=== PATIENT | female | born 1945 ===

== ENCOUNTER 2016-06-29 16:03 | Observation (INO) | payer MEDICARE, MEDICAID ==
[2016-06-29 16:04] VITALS: BMI 25.0
--- NOTE | 2016-06-29 16:17 | ED PDOC ---
HPI:STROKE - Time Time: 16:15 - Historian Historian: Patient, Family, EMS (wEAKNESS LEFT UPPER AND LEFT LOWER EXT X 1 WEEK. Denies headache or dizziness) - Chief Complaint Chief Complaint: Weakness - Onset Date: 06/22/16 Time: 12:00 Onset: Weeks (1) - Timing Timing: Currently Symptomatic - Location Locate left: Upper extremity - Radiation Radiation: None - Severity of pain Maximum severity:: Mild Pain Scale:: 0 Severity Current: Mild Pain Scale:: 0 - TPA Positive for Contraindication: Yes Reason tPA is not being Administered: Sx x 1 week NIHSS Stroke Scale - How Severe is the Stroke Level of Consciousness: 0=Alert LOC to Questions: 0=Both comments correct LOC to commands: 0=Obeys both correctly Best Gaze: 0=Normal Visual: 0=No visual loss Facial: 1=Minor asymmetry Motor Arm - Left: 1=Drift noted before 10 sec Motor Arm - Right: 0=No drift Motor Leg - Left: 1=Drift before 5 sec Motor Leg - Right: 0=No drift Limb Ataxia: 0=Absent Sensory: 0=Normal Best Language: 0=No aphasia Dysarthia: 0=Normal articulation Extinction & Inattention (Neglect): 0=Normal, no object Score: 3 rTPA Inclusion/Exclusion - Refusal of Treatment Patient Refused Treatment: No - Inclusion Criteria for Altepase Patient is 18 years or Older: Yes The Clinical Diagnosis of Ischemic Stroke That is Causing a Potentially Disabling Neurological Deficit: Yes Time of Onset is Well Established to be Less Than 270 Minute Before Treatment Would Begin: No Risk/Benefit Discussed With Patient/Family Member Present: No Past Medical History Vital Signs: Last Vital Signs Temp 98.4 F 06/29/16 16:08 Pulse 90 06/29/16 16:08 Resp 16 06/29/16 16:08 BP 189/109 H 06/29/16 16:08 Pulse Ox 100 06/29/16 16:08 - Medical History PMH: Anxiety, Arthritis, Diverticulitis, Hypercholesterolemia, Osteoporosis, Parkinson's Disease Denies: CAD, Diabetes, Gastritis, Gall Bladder Disease, GERD, HIV, Pancreatitis, Chronic Kidney Disease - Surgical History Surgical History: Appendectomy - Family History Family History: States: Unknown Family Hx - Immunization History Hx Tetanus Toxoid Vaccination: No Hx Influenza Vaccination: Yes Hx Pneumococcal Vaccination: Yes - Home Medications Home Medications: Ambulatory Orders Medication Instructions Recorded Alendronate Sodium [Fosamax] 70 mg PO SAT 06/04/15 Simvastatin 20 mg PO HS 06/04/15 Carbidopa/Levodopa [Sinemet 1 tab PO BID 06/29/16] Gabapentin [Neurontin] 300 mg PO DAILY 06/29/16 Pantoprazole Sodium [Protonix] 40 mg PO DAILY 06/29/16 clonazePAM [Klonopin] 0.5 mg PO HS 06/29/16 rOPINIRole [Requip] 2 mg PO TID 06/29/16 - Allergies Allergies/Adverse Reactions: Allergies Allergy/AdvReac Type Severity Reaction Status Date / Time clarithromycin Allergy NAUSEA Verified 06/29/16 16:08 iodine Allergy SWELLING Verified 06/29/16 16:08 Review of Systems ROS Statement: Except As Marked, All Systems Reviewed And Found Negative Neurological: Positive for: Weakness Physical Exam - Reviewed Nursing Documentation Reviewed: Yes Vital Signs Reviewed: Yes - Physical Exam Appears: Positive for: Non-toxic, No Acute Distress Head Exam: Positive for: ATRAUMATIC, NORMAL INSPECTION, NORMOCEPHALIC Skin: Positive for: Normal Color, Warm, DRY Eye Exam: Positive for: EOMI, Normal appearance, PERRL ENT: Positive for: Normal ENT Inspection Neck: Positive for: Normal, Painless ROM Cardiovascular/Chest: Positive for: Regular Rate, Rhythm Respiratory: Positive for: CNT, Normal Breath Sounds Gastrointestinal/Abdominal: Positive for: Normal Exam, Bowel Sounds, Soft Back: Positive for: Normal Inspection Extremity: Positive for: Normal ROM Neurologic/Psych: Positive for: Alert, Oriented, Motor/Sensory Deficits (left upper and lower ext motor 1/4), Facial Droop (Mild asymmetry left side) - Laboratory Results Result Diagrams: 06/29/16 17:12 06/29/16 17:12 - ECG O2 Sat by Pulse Oximetry: 100 Disposition - Clinical Impression Clinical Impression: CVA (cerebral vascular accident) - Patient ED Disposition Is Patient to be Admitted: Yes - Disposition Disposition Time: 18:46 Condition: FAIR - Pt Status Changed To: Hospital Disposition Of: Observation - POA Present On Arrival: None
--- NOTE | 2016-06-29 16:45 | CT ---
PROCEDURE: CT HEAD WITHOUT CONTRAST. HISTORY: code stroke COMPARISON: No prior study available for comparison. TECHNIQUE: Axial computed tomography images were obtained through the head/brain without intravenous contrast. Radiation dose: Total exam DLP = 852.67 mGy-cm. This CT exam was performed using one or more of the following dose reduction techniques: Automated exposure control, adjustment of the mA and/or kV according to patient size, and/or use of iterative reconstruction technique. FINDINGS: HEMORRHAGE: No acute parenchymal, subarachnoid or extra-axial hemorrhage. BRAIN: Mild-moderate chronic periventricular white matter ischemic changes seen extending peripherally into the deep and subcortical white matter both cerebral hemispheres. Moderate central volume loss evidenced by mild disproportionate enlargement of the ventricles as compared sulci. Vascular calcifications of both carotid siphons. VENTRICLES: No evidence of obstructive hydrocephalus. CALVARIUM: There are no acute calvarial fractures. Small rounded lucency within the left anterior superior parietal calvarium likely represents a venous Alexander PARANASAL SINUSES: Visualized paranasal sinuses are well-developed entirely well-aerated. No fluid levels seen to suggest acute sinusitis. MASTOID AIR CELLS: Left mastoid air complexes are underpneumatized/mildly sclerotic compared to the right-side. OTHER FINDINGS: Changes of bilateral cataract surgery are present. IMPRESSION: Mild to moderate chronic white matter ischemic changes. Moderate central volume loss. Case discussed with Dr. Anderson at approximately 4:35 p.m. with written down and read back verification.
[2016-06-29 17:17] LABS: BASO % 0.4 % (0.0-2.0); EOS % 0.4 % (0.0-4.0); HEMATOCRIT 38.5 % (34.0-47.0); LYMPH # 2.7 K/uL (1.0-4.3); LYMPH % 32.9 % (20.0-40.0); MEAN CELL VOLUME 97.4 fl (81.0-99.0); MEAN CORPUSCULAR HEMOGLOBIN 31.7 pg (27.0-31.0); MEAN CORPUSCULAR HGB CONC 32.5 g/dL (33.0-37.0); MEAN PLATELET VOLUME 8.9 fl (7.2-11.7); MONO # 0.6 K/uL (0.0-0.8); MONO % 6.7 % (0.0-10.0); NEUT # 4.9 K/uL (1.8-7.0); NEUT % 59.6 % (50.0-75.0); NRBC % 0.1 % (0.0-0.0); RED CELL DISTRIBUTION WIDTH 13.1 % (11.5-14.5); WHITE BLOOD COUNT 8.3 K/uL (4.8-10.8)
[2016-06-29 17:32] LABS: ALB/GLOB RATIO 1.5 (1.0-2.1); ALKALINE PHOSPHATASE 56 U/L (38-126); ALT/SGPT 23 U/L (9-52); AST/SGOT 30 U/L (14-36); BILIRUBIN,TOTAL 0.5 mg/dl (0.2-1.3); BLOOD UREA NITROGEN 19 mg/dl (7-17); CALCIUM 9.8 mg/dL (8.4-10.2); CARBON DIOXIDE 26 mmol/L (22-30); CHLORIDE 103 mmol/L (98-107); CHOLESTEROL 166 mg/dL (0-199); GFR AFRICAN-AMERICAN > 60; GLUCOSE,RANDOM 91 mg/dL (65-105); POTASSIUM 4.5 MMOL/L (3.6-5.0); SODIUM 143 mmol/l (132-148); TOTAL PROTEIN 7.7 G/DL (6.3-8.2)
[2016-06-29 18:45] LABS: PARTIAL THROMBOPLASTIN TIME 24.9 SECONDS (23.3-32.5)
--- NOTE | 2016-06-29 21:22 | MRI ---
EXAM: MR Head Without Intravenous Contrast CLINICAL HISTORY: 71 years old, female; Signs and symptoms; Other: CVA TECHNIQUE: Magnetic resonance images of the head/brain without intravenous contrast in multiple planes. COMPARISON: CT - HEAD W/O (CODE STROKE) 06/29/2016 4:16:32 PM FINDINGS: There is prominence of the ventricles and the cortical sulci bilaterally consistent with cerebral atrophy. There are numerous foci of increased T2 signal in the deep white matter and periventricular zones consistent with chronic small vessel ischemic changes. Question old left cerebellar infarct. There is no evidence for acute hemorrhage, infarct or extra-axial fluid collections. There are no masses or mass effect. Midline structures are symmetric. The large major cerebral vessels demonstrate normal flow voids indicating patency. Limited evaluation of the orbits. Mild paranasal sinus disease. IMPRESSION: No acute intracranial abnormality. Chronic atrophic and ischemic changes. Correlate with report for CT head.
--- NOTE | 2016-06-29 21:23 | MRI ---
EXAM: MR Angiography Head Without Intravenous Contrast CLINICAL HISTORY: 71 years old, female; Signs and symptoms; Other: CVA TECHNIQUE: Magnetic resonance angiography images of the head without intravenous contrast. COMPARISON: CT - HEAD W/O (CODE STROKE) 06/29/2016 4:16:32 PM FINDINGS: Evaluation of the intracranial portions of the bilateral internal carotid and vertebral arteries, the basilar artery, the [place], and its main branches reveals no significant stenosis or occlusion. No aneurysm is identified. IMPRESSION: Negative study.
--- NOTE | 2016-06-29 21:23 | MRI ---
EXAM: MR Angiography Neck Without Intravenous Contrast CLINICAL HISTORY: 71 years old, female; Signs and symptoms; Other: CVA TECHNIQUE: Magnetic resonance angiography images of the neck without intravenous contrast. COMPARISON: No relevant prior studies available. FINDINGS: Evaluation of the extracranial portions of the of bilateral common carotid, internal carotid, external carotid, and vertebral arteries reveals no significant stenosis or occlusion. IMPRESSION: No significant stenosis. Further followup evaluation should be performed with dedicated carotid ultrasound.
[2016-06-30 00:11] VITALS: RESP 18
[2016-06-30 00:12] LABS: THYROID STIMULATING HORMONE 2.65 mIU/ML (0.46-4.68)
[2016-06-30] MEDS ORDERED: ROPINIROLE 2 MG PO SCH (09:00)
[2016-06-30] MEDS ORDERED: Pantoprazole 40 mg EC Tab PO SCH (09:00)
[2016-06-30] MEDS ORDERED: Enoxaparin 40 mg Syringe SC SCH (09:00)
--- NOTE | 2016-06-30 11:53 | RAD ---
HISTORY: CVA COMPARISON: Comparison is made to the previous CT dated 05/12/2013 FINDINGS: LUNGS: No active pulmonary disease. PLEURA: No significant pleural effusion identified, no pneumothorax apparent. CARDIOVASCULAR: Normal. OSSEOUS STRUCTURES: No evidence of acute pathology. Soft tissue calcification seen adjacent to the right humerus head likely represent calcified tendinitis. VISUALIZED UPPER ABDOMEN: Normal. OTHER FINDINGS: None. IMPRESSION: No active disease.
--- NOTE | 2016-06-30 12:30 | CP.PCM.HP ---
History of Present Illness - History of Present Illness History of Present Illness: Patient [id number] di the PMD office with minimal weakness in the lt side of the body. At present time the deficit resolved. Not focal deficit. W/U no acute CVA. Will dc patient home Dx. TIA Present on Admission - Present on Admission Any Indicators Present on Admission: No Review of Systems - Constitutional Constitutional: As Per HPI - EENT Eyes: As Per HPI Nose/Mouth/Throat: As Per HPI - Cardiovascular Cardiovascular: As Per HPI - Respiratory Respiratory: As Per HPI - Gastrointestinal Gastrointestinal: As Per HPI - Musculoskeletal Musculoskeletal: As Per HPI - Neurological Neurological: As Per HPI - Psychiatric Psychiatric: As Per HPI Past Patient History - Infectious Disease Hx of Infectious Diseases: None - Past Medical History & Family History Past Medical History?: Yes - Past Social History Smoking Status: Never Smoked - CARDIAC Hx Hypercholesterolemia: Yes - PULMONARY Hx Respiratory Disorders: No - NEUROLOGICAL Hx Neurological Disorder: Yes Hx Parkinson's Disease: Yes - HEENT Hx HEENT Problems: Yes Hx Cataracts: Yes (HX OF AILEEN. SURGERY) - RENAL Hx Chronic Kidney Disease: No - ENDOCRINE/METABOLIC Hx Endocrine Disorders: No - HEMATOLOGICAL/ONCOLOGICAL Hx Blood Disorders: No Hx Human Immunodeficiency Virus (HIV): No - INTEGUMENTARY Hx Dermatological Problems: No - MUSCULOSKELETAL/RHEUMATOLOGICAL Hx Arthritis: Yes - GASTROINTESTINAL Hx Gastrointestinal Disorders: Yes Hx Diverticulitis: Yes Hx Gall Bladder Disease: No Hx Gastritis: No Hx Pancreatitis: No - GENITOURINARY/GYNECOLOGICAL Hx Genitourinary Disorders: No - PSYCHIATRIC Hx Psychophysiologic Disorder: No Hx Substance Use: No - SURGICAL HISTORY Hx Surgeries: Yes Hx Appendectomy: Yes Hx Hysterectomy: Yes Hx Tubal Ligation: Yes Other/Comment: bladder surgery, - ANESTHESIA Hx Anesthesia: Yes Hx Anesthesia Reactions: Yes (delayed awakening) Hx Malignant Hyperthermia: No Has any member of the family had a problem w/ anesthesia?: No Meds Allergies/Adverse Reactions: Allergies Allergy/AdvReac Type Severity Reaction Status Date / Time clarithromycin Allergy NAUSEA Verified 06/29/16 16:08 iodine Allergy SWELLING Verified 06/29/16 16:08 Physical Exam - Constitutional Appears: Non-toxic - Head Exam Head Exam: ATRAUMATIC, NORMAL INSPECTION, NORMOCEPHALIC - Eye Exam Eye Exam: Normal appearance Pupil Exam: NORMAL ACCOMODATION, PERRL - ENT Exam ENT Exam: Mucous Membranes Moist - Neck Exam Neck exam: Positive for: Normal Inspection - Respiratory Exam Respiratory Exam: Clear to Auscultation Bilateral - Cardiovascular Exam Cardiovascular Exam: REGULAR RHYTHM, +S1, +S2 - GI/Abdominal Exam GI & Abdominal Exam: Normal Bowel Sounds - Neurological Exam Neurological exam: Alert, CN II-XII Intact, Oriented x3, Reflexes Normal - Psychiatric Exam Psychiatric exam: Normal Affect Results - Vital Signs Recent Vital Signs: Last Vital Signs Temp 98.2 F 06/30/16 08:17 Pulse 94 H 06/30/16 11:11 Resp 18 06/30/16 08:17 BP 130/78 06/30/16 08:17 Pulse Ox 99 06/30/16 11:11 - Labs Result Diagrams: 06/29/16 17:12 06/29/16 17:12 Labs: Laboratory Results - last 24 hr 06/29/16 06/29/16 06/29/16 20:34 21:00 23:19 Hemoglobin A1c 5.5 Vitamin B12 986 H TSH 3rd Generation 2.65 Blood Type Confirm O POSITIVE Assessment & Plan (1) TIA (transient ischemic attack) Status: Acute (2) Gait disturbance Status: Acute - Assessment and Plan (Free Text) Plan: DC home on home PT
--- NOTE | 2016-06-30 14:27 | US ---
COMPARISON: Study was read in conjunction with MRA neck performed 06/29/2016. FINDINGS: Minimal intimal thickening seen within the right and left common carotid arteries. No significant atherosclerotic plaque changes however identified within the carotid bifurcations or proximal internal carotid arteries. Maximal right ICA velocity = 102.3 cm/S Maximal right CCA velocity = 95.6 cm/S ICA/CCA ratio = 1.2 Maximal left ICA velocity = 93.4 cm/S Maximal left CCA velocity = 96.5 cm/S ICA/CCA ratio = 1.2. Antegrade flow noted both vertebral arteries Impression: No evidence of hemodynamically significant stenosis.
[2016-06-30 16:15] VITALS: BP 129/77; PULSE 90; TEMP 98.7; O2SAT 99
[2016-06-30 17:23] LABS: FOLATE 19.4 ng/mL
--- NOTE | 2016-06-30 17:43 | CARD ---
APPROVED REPORT EXAM: Two-dimensional and M-mode echocardiogram with Doppler and color Doppler. Other Information Quality : GoodRhythm : NSR INDICATION Palpitations 2D DIMENSIONS IVSd0.97 (0.7-1.1cm)LVDd4.02 (3.9-5.9cm) LVOT Diameter1.75 (1.8-2.4cm)PWd0.93 (0.7-1.1cm) IVSs1.15 (0.8-1.2cm)LVDs2.54 (2.5-4.0cm) FS (%) 36.8 %PWs1.11 (0.8-1.2cm) M-Mode DIMENSIONS Left Atrium (MM)4.21 (2.5-4.0cm)IVSd1.00 (0.7-1.1cm) Aortic Root2.88 (2.2-3.7cm)LVDd5.29 (4.0-5.6cm) Aortic Cusp Exc.2.00 (1.5-2.0cm)PWd1.03 (0.7-1.1cm) IVSs1.47 cmFS (%) 55 % LVDs2.38 (2.0-3.8cm)PWs1.24 cm Mitral Valve MV E Vrdlurki04.8cm/sMV DECEL [id number] A Sfdzhihp78.7cm/s MV ZYK78mcC/A ratio0.7MVA (PHT)3.70cm2 TDI Lateral E' Peak V8.88cm/sMedial E' Peak V6.44cm/sE/Lateral E'6.2 E/Medial E'8.5 Pulmonary Valve PV Peak Epwkpwha920.5cm/s LEFT VENTRICLE The left ventricle is normal size. There is normal left ventricular wall thickness. The left ventricular function is normal. The left ventricular ejection fraction is 60-65% There is normal LV segmental wall motion. Transmitral Doppler flow pattern is Grade I-abnormal relaxation pattern. No left ventricle thrombus noted on this study. There is no ventricular septal defect visualized. There is no left ventricular aneurysm. There is no mass noted in the left ventricle. RIGHT VENTRICLE The right ventricle is normal size. There is normal right ventricular wall thickness. The right ventricular systolic function is normal. ATRIA The left atrium size is normal. The right atrium size is normal. The interatrial septum is intact with no evidence for an atrial septal defect. AORTIC VALVE The aortic valve is mildly sclerotic. There is trace aortic regurgitation. There is no aortic valvular stenosis. There is no aortic valvular vegetation. MITRAL VALVE The mitral valve is normal in structure and function. There is no evidence of mitral valve prolapse. There is no mitral valve stenosis. There is no mitral valve regurgitation noted. TRICUSPID VALVE The tricuspid valve is normal in structure and function. There is no tricuspid valve regurgitation noted. There is no tricuspid valve prolapse or vegetation. There is no tricuspid valve stenosis. PULMONIC VALVE The pulmonary valve is normal in structure and function. There is no pulmonic valvular regurgitation. There is no pulmonic valvular stenosis. GREAT VESSELS The aortic root is normal in size. The ascending aorta is normal in size. The IVC is normal in size and collapses >50% with inspiration. PERICARDIAL EFFUSION The pericardium appears normal. There is no pleural effusion. <Conclusion> Normal LV systolic function Trace Aortic Insufficiency
--- NOTE | 2016-06-30 17:48 | CP.PCM.CON ---
History of Present Illness - History of Present Illness History of Present Illness: Mrs. Alvarenga is a 71-year-old woman with a past medical history of anxiety and neuropathic pain, who was noted to have left side weakness in her PMD's office. This weakness seems to come and go, but is now resolved. She was admitted for TIA work up. Currently, she has no complaints and is asking to go home. Review of Systems - Review of Systems All systems: reviewed and no additional remarkable complaints except Past Patient History - Infectious Disease Hx of Infectious Diseases: None - Past Medical History & Family History Past Medical History?: Yes - Past Social History Smoking Status: Never Smoked - CARDIAC Hx Hypercholesterolemia: Yes - PULMONARY Hx Respiratory Disorders: No - NEUROLOGICAL Hx Neurological Disorder: Yes Hx Parkinson's Disease: Yes - HEENT Hx HEENT Problems: Yes Hx Cataracts: Yes (HX OF AILEEN. SURGERY) - RENAL Hx Chronic Kidney Disease: No - ENDOCRINE/METABOLIC Hx Endocrine Disorders: No - HEMATOLOGICAL/ONCOLOGICAL Hx Blood Disorders: No Hx Human Immunodeficiency Virus (HIV): No - INTEGUMENTARY Hx Dermatological Problems: No - MUSCULOSKELETAL/RHEUMATOLOGICAL Hx Arthritis: Yes - GASTROINTESTINAL Hx Gastrointestinal Disorders: Yes Hx Diverticulitis: Yes Hx Gall Bladder Disease: No Hx Gastritis: No Hx Pancreatitis: No - GENITOURINARY/GYNECOLOGICAL Hx Genitourinary Disorders: No - PSYCHIATRIC Hx Psychophysiologic Disorder: No Hx Substance Use: No - SURGICAL HISTORY Hx Surgeries: Yes Hx Appendectomy: Yes Hx Hysterectomy: Yes Hx Tubal Ligation: Yes Other/Comment: bladder surgery, - ANESTHESIA Hx Anesthesia: Yes Hx Anesthesia Reactions: Yes (delayed awakening) Hx Malignant Hyperthermia: No Has any member of the family had a problem w/ anesthesia?: No Meds Home Medications: Home Medication List Medication Instructions Recorded Confirmed Type Aspirin [Adult Low Dose Aspirin EC] 81 mg PO DAILY #30 tablet. 06/30/16 Rx Allergies/Adverse Reactions: Allergies Allergy/AdvReac Type Severity Reaction Status Date / Time clarithromycin Allergy NAUSEA Verified 06/29/16 16:08 iodine Allergy SWELLING Verified 06/29/16 16:08 Physical Exam - Constitutional Appears: Well - Head Exam Head Exam: ATRAUMATIC, NORMAL INSPECTION, NORMOCEPHALIC - Eye Exam Eye Exam: EOMI, Normal appearance, PERRL - ENT Exam ENT Exam: Mucous Membranes Moist, Normal Exam - Neck Exam Neck exam: Positive for: Normal Inspection - Respiratory Exam Respiratory Exam: Clear to Auscultation Bilateral, NORMAL BREATHING PATTERN - Cardiovascular Exam Cardiovascular Exam: REGULAR RHYTHM, +S1, +S2 - GI/Abdominal Exam GI & Abdominal Exam: Normal Bowel Sounds, Soft. absent: Tenderness - Rectal Exam Rectal Exam: Deferred - Extremities Exam Extremities exam: Positive for: normal inspection - Neurological Exam Neurological exam: Abnormal Gait, Alert, CN II-XII Intact, Oriented x3, Reflexes Normal - Expanded Neurological Exam Expanded Patient oriented to: person, place, time Cranial nerves: EOM's Intact: Normal Cerebellar Function: Finger to Nose: Normal Upper motor neuron: Babinski Sign: Normal Sensory exam: Lower Extremity Light Touch: Normal, Lower Extremity Pin Prick: Normal, Upper Extremity Light Touch: Normal, Upper Extremity Pin Prick: Normal Neuro motor strength exam: Left Upper Extremity: 4, Right Upper Extremity: 4, Left Lower Extremity: 4, Right Lower Extremity: 4 DTR: Achilles Tendon Left: 2+, Achilles Tendon Right: 2+, Bicep Left: 2+, Bicep Right: 2+, Brachioradialis Left: 2+, Brachioradialis Right: 2+, Patellar Left: 2 +, Patellar Right: 2+, Tricep Left: 2+, Tricep Right: 2+ - Psychiatric Exam Psychiatric exam: Normal Affect, Normal Mood - Skin Skin Exam: Dry, Intact, Normal Color, Warm Results - Vital Signs Recent Vital Signs: Last Vital Signs Temp 98.7 F 06/30/16 16:14 Pulse 90 06/30/16 16:14 Resp 18 06/30/16 16:14 BP 129/77 06/30/16 16:14 Pulse Ox 99 06/30/16 16:14 - Labs Result Diagrams: 06/29/16 17:12 06/29/16 17:12 Labs: Laboratory Results - last 24 hr 06/29/16 06/29/16 06/29/16 20:34 21:00 23:19 Hemoglobin A1c 5.5 Vitamin B12 986 H Folate 19.4 TSH 3rd Generation 2.65 RPR Blood Type Confirm O POSITIVE 06/29/16 23:19 Hemoglobin A1c Vitamin B12 Folate TSH 3rd Generation RPR Nonreactive Blood Type Confirm - Imaging and Cardiology MRI - head Status: Image reviewed by me, Report reviewed by me (Chronic small vessel disease and no acute findings. MRA of head/neck is clear.) Assessment & Plan (1) TIA (transient ischemic attack) Assessment and Plan: Work-up with MRI/MRA, echo and telemetry has not revealed any underlying pathology. I recommend continuing aspirin 81 mg daily and prolonged cardiac monitoring as an outpatient. Her LDL was 45, and does not warrant a statin. PT /OT eval is recommended. Follow-up with outpatient neurology. Thank you for this consultation. Status: Acute Priority: High
--- NOTE | 2016-06-30 18:49 | CARD ---
APPROVED REPORT EKG Measurement Heart [id number] <Conclusion> Normal sinus rhythm Normal ECG
[2016-07-01] MEDS ORDERED: ALENDRONATE 70 MG TAB PO SCH (09:00)
== END 2016-06-30 16:45 | disposition home or self-care (01) ==
LOC: H.ER 16:03 → H.ERHOLD 18:44 → H.TEL 21:39
PROVIDERS: ADMIT Internal Medicine; ATTEND Internal Medicine
DX: G45.9 Transient cerebral ischemic attack, unspecified (principal); E78.00 Pure hypercholesterolemia, unspecified; G20 Parkinson's disease; M19.90 Unspecified osteoarthritis, unspecified site; Z88.1 Allergy status to other antibiotic agents; Z88.8 Allergy status to other drugs, medicaments and biological substances; R26.9 Unspecified abnormalities of gait and mobility; F41.9 Anxiety disorder, unspecified; M81.0 Age-related osteoporosis without current pathological fracture
CPT/HCPCS: 70450; 70544; 70547; 70551; 71010; 80053; 80061; 82607; 82746; 82948; 83036; 84443; 84484; 85025; 85610; 85730; 86592; 86850; 86900; 93005; 93306; 93880; 97161; 97165; 99285; G0378; G8978; G8979; G8987; G8988; J1650

== ENCOUNTER 2017-02-28 11:03 | Emergency (ER) | payer MEDICARE, OTHER ==
[2017-02-28 11:03] VITALS: BMI 25.0
[2017-02-28 11:32] VITALS: O2SAT 98
[2017-02-28] MEDS ORDERED: Sodium Chloride 0.9% 1,000 ML IV STA (12:14)
--- NOTE | 2017-02-28 12:48 | ED PDOC ---
HPI: Chest Pain Time Seen by Provider: 02/28/17 11:40 Chief Complaint (Nursing): Shortness Of Breath Chief Complaint (Provider): Right Sided Lower Rib Pain History Per: Patient History/Exam Limitations: no limitations Onset/Duration Of Symptoms: Days (x 2-3) Current Symptoms Are (Timing): Still Present Additional Complaint(s): Monica is a 71 y/o female with a history of diabetes with neuropathy and Parkinsons disease who presents to the ED complaining of right sided lower rib pain with radiation to the right lower flank and back for the past 2 to 3 days. Patient is eating ok with no vomiting and denies shortness of breath or cough. She states it is worse with movement and deep breaths. PMD: Ryan Lunsford Past Medical History Reviewed: Historical Data, Nursing Documentation, Vital Signs Vital Signs: Last Vital Signs Temp 97.9 F 02/28/17 11:28 Pulse 103 H 02/28/17 11:28 Resp 20 02/28/17 11:28 BP 147/82 02/28/17 11:28 Pulse Ox 98 02/28/17 14:08 - Medical History PMH: Anxiety, Arthritis, Diabetes (with neuropathy), Diverticulitis, Hypercholesterolemia, Osteoporosis, Parkinson's Disease, TIA Denies: CAD, Gastritis, Gall Bladder Disease, GERD, HIV, Pancreatitis, Chronic Kidney Disease - Surgical History Surgical History: Appendectomy, Cholecystectomy Other surgeries: hysterectomy - Family History Family History: States: No Known Family Hx - Social History Current smoker - smoking cessation education provided: No Ex-Smoker (has not smoked in the last 12 months): No Alcohol: None Drugs: Denies - Immunization History Hx Tetanus Toxoid Vaccination: No Hx Influenza Vaccination: Yes Hx Pneumococcal Vaccination: Yes - Home Medications Home Medications: Ambulatory Orders Medication Instructions Recorded Alendronate Sodium [Fosamax] 70 mg PO SAT 06/04/15 Simvastatin 20 mg PO HS 06/04/15 Carbidopa/Levodopa [Sinemet 1 tab PO BID 06/29/16] Gabapentin [Neurontin] 300 mg PO DAILY 06/29/16 Pantoprazole Sodium [Protonix] 40 mg PO DAILY 06/29/16 clonazePAM [Klonopin] 0.5 mg PO HS 06/29/16 rOPINIRole [Requip] 2 mg PO TID 06/29/16 Aspirin [Adult Low Dose Aspirin EC] 81 mg PO DAILY #30 tablet. 06/30/16 Naproxen [Naprosyn] 500 mg PO BID PRN #20 tablet 02/28/17 - Allergies Allergies/Adverse Reactions: Allergies Allergy/AdvReac Type Severity Reaction Status Date / Time clarithromycin Allergy NAUSEA Verified 02/28/17 11:28 iodine Allergy SWELLING Verified 02/28/17 11:28 Review of Systems ROS Statement: Except As Marked, All Systems Reviewed And Found Negative Constitutional: Negative for: Fever, Chills Cardiovascular: Positive for: Chest Pain (right sided, sharp) Respiratory: Negative for: Cough, Shortness of Breath Gastrointestinal: Positive for: Abdominal Pain (right flank). Negative for: Nausea, Vomiting Genitourinary Female: Negative for: Dysuria, Frequency, Incontinence, Hematuria Physical Exam - Reviewed Nursing Documentation Reviewed: Yes Vital Signs Reviewed: Yes - Physical Exam Head Exam: Positive for: NORMOCEPHALIC Neck: Positive for: Supple Cardiovascular/Chest: Negative for: Chest Non Tender (Right lower rib cage) Respiratory: Positive for: Normal Breath Sounds Gastrointestinal/Abdominal: Positive for: Soft, Tenderness (RUQ) Back: Positive for: R CVA Tenderness (mild) Extremity: Negative for: Pedal Edema, Swelling Neurologic/Psych: Positive for: Alert, Oriented - Laboratory Results Result Diagrams: 02/28/17 13:00 02/28/17 13:00 - ECG O2 Sat by Pulse Oximetry: 98 (RA) Pulse Ox Interpretation: Normal Medical Decision Making Medical Decision Making: Time: 12:09 Initial Impression: Right sided chest pain, RUQ pain Rule out pneumonia, cholecystitis, UTI, kidney stones Initial Plan: --EKG --CMP --Troponin --Urine Dip --CBC --Chest XR --Toradol --US abdomen Time: 13:18 --Urine culture and urinalysis ordered Scribe Attestation: Documented by Gene Broderick, acting as a scribe for Daniela Prabhakar MD Provider Scribe Attestation: All medical record entries made by the Scribe were at my direction and personally dictated by me. I have reviewed the chart and agree that the record accurately reflects my personal performance of the history, physical exam, medical decision making, and the department course for this patient. I have also personally directed, reviewed, and agree with the discharge instructions and disposition. patient is without complaints. feeling better. labs, ekg, chest x-ray, US all normal. Will discharge. Disposition - Clinical Impression Clinical Impression: Rib pain on right side - Patient ED Disposition Is Patient to be Admitted: No Doctor Will See Patient In The: Office Counseled Patient/Family Regarding: Diagnosis, Need For Followup - Disposition Disposition: Routine/Home Disposition Time: 15:01 Condition: IMPROVED Prescriptions: Naproxen [Naprosyn] 500 mg PO BID PRN #20 tablet PRN Reason: Pain, Moderate (4-7) Instructions: Chest Wall Pain (ED) Forms: [facility] (Portuguese) Print Language: ICELANDIC - POA Present On Arrival: None
[2017-02-28 13:10] LABS: HEMOGLOBIN 12.7 g/dL (12.0-16.0); MONO # 0.4 K/uL (0.0-0.8); NEUT # 4.3 K/uL (1.8-7.0)
[2017-02-28 13:23] LABS: BASO % 0.3 % (0.0-2.0); EOS % 0.2 % (0.0-4.0); LYMPH # 1.6 K/uL (1.0-4.3); LYMPH % 25.6 % (20.0-40.0); MEAN CELL VOLUME 95.5 fl (81.0-99.0); MEAN CORPUSCULAR HEMOGLOBIN 31.4 pg (27.0-31.0); MEAN CORPUSCULAR HGB CONC 32.9 g/dL (33.0-37.0); MEAN PLATELET VOLUME 8.7 fl (7.2-11.7); MONO % 6.2 % (0.0-10.0); NEUT % 67.7 % (50.0-75.0); RBC 4.05 Mil/uL (3.80-5.20); RED CELL DISTRIBUTION WIDTH 12.8 % (11.5-14.5); WHITE BLOOD COUNT 6.4 K/uL (4.8-10.8)
[2017-02-28 13:33] LABS: ALB/GLOB RATIO 1.3 (1.0-2.1); ALBUMIN 4.5 g/dL (3.5-5.0); ALT/SGPT 29 U/L (9-52); AST/SGOT 41 U/L (14-36); BLOOD UREA NITROGEN 18 mg/dl (7-17); GFR AFRICAN-AMERICAN > 60; GFR NON-AFRICAN AMERICAN > 60
[2017-02-28 13:53] LABS: SQUAMOUS EPITHIAL 1 /hpf (0-5); URINE BACTERIA RARE (<OCC); URINE BILIRUBIN NEGATIVE (NEGATIVE); URINE BLOOD SMALL (NEGATIVE); URINE CLARITY CLEAR (Clear); URINE COLOR COLORLESS (YELLOW); URINE GLUCOSE (UA) NEG (Normal); URINE LEUKOCYTE ESTERASE MOD Leu/uL (Negative); URINE NITRATE NEGATIVE (NEGATIVE); URINE PROTEIN NEGATIVE (NEGATIVE); URINE UROBILINOGEN 0.2-1.0 mg/dL (0.2-1.0)
--- NOTE | 2017-02-28 14:08 | RAD ---
HISTORY: right sided chest/rib pain, ruqT COMPARISON: 06/29/2016 TECHNIQUE: Chest PA and lateral FINDINGS: LUNGS: No active pulmonary disease. PLEURA: No significant pleural effusion identified. No pneumothorax apparent. CARDIOVASCULAR: Normal. OSSEOUS STRUCTURES: No significant abnormalities. VISUALIZED UPPER ABDOMEN: Normal. OTHER FINDINGS: None. IMPRESSION: No active disease.
--- NOTE | 2017-02-28 14:22 | US ---
HISTORY: ruq pain/tenderness COMPARISON: None. TECHNIQUE: Sonographic evaluation of the abdomen. FINDINGS: LIVER: Measures 13.8 cm. Normal echogenicity of the liver parenchyma. No mass. No intrahepatic bile duct dilatation. GALLBLADDER: Unremarkable. No gallstones. COMMON BILE DUCT: Measures 4.8 mm. No stones. No dilatation.Negative study for gallbladder wall thickening, pericholecystic fluid, sonographic Vaughan's sign. PANCREAS: Unremarkable as visualized. No mass. No ductal dilatation. RIGHT KIDNEY: Measures 11.2 by 3.9 x 3.3cm. Normal echogenicity. No calculus, mass, or hydronephrosis. LEFT KIDNEY: Measures 10.5 x 4.8 x 5.6cm. Normal echogenicity. No calculus, mass, or hydronephrosis. SPLEEN: Normal in size and contour. No mass. AORTA: No aneurysmal dilatation. IVC: Unremarkable. OTHER FINDINGS: None. IMPRESSION: Unremarkable abdominal sonogram.
[2017-02-28 15:44] VITALS: BP 130/70; PULSE 76; RESP 16; TEMP 98.2
--- NOTE | 2017-03-02 18:40 | CARD ---
APPROVED REPORT EKG Measurement Heart [id number] <Conclusion> Sinus tachycardia Inferior infarct, age undetermined Abnormal ECG
== END 2017-02-28 15:45 | disposition home or self-care (01) ==
LOC: H.ER 11:03
DX: R07.82 Intercostal pain (principal); E11.40 Type 2 diabetes mellitus with diabetic neuropathy, unspecified; E78.00 Pure hypercholesterolemia, unspecified; F41.9 Anxiety disorder, unspecified; G20 Parkinson's disease; M81.0 Age-related osteoporosis without current pathological fracture; Z79.82 Long term (current) use of aspirin; Z86.73 Personal history of transient ischemic attack (TIA), and cerebral infarction without residual deficits; Z90.710 Acquired absence of both cervix and uterus
CPT/HCPCS: 71046; 76700; 80053; 81003; 84484; 85025; 87086; 93005; 96374; 99284; J1885; J7040

== ENCOUNTER 2017-04-04 15:04 | Emergency (ER) | payer MEDICARE, OTHER ==
[2017-04-04 15:05] VITALS: BMI 25.0
[2017-04-04 15:30] VITALS: RESP 18; TEMP 98
[2017-04-04] MEDS ORDERED: Sodium Chloride 0.9% 1,000 ML IV STA (16:05)
--- NOTE | 2017-04-04 16:20 | ED PDOC ---
HPI: Abdomen Chief Complaint (Provider): Abdominal Pain History Per: Patient History/Exam Limitations: no limitations Onset/Duration Of Symptoms: Days (x5) Current Symptoms Are (Timing): Still Present <LuliErasmoa F - Last Filed: 04/05/17 16:32> <Jordon Anna - Last Filed: 04/06/17 09:09> Time Seen by Provider: 04/04/17 15:38 Chief Complaint (Nursing): Abdominal Pain Additional Complaint(s): Monica Tilley is a 71 year old female with a history of Parkinson's Disease, appendectomy, bilateral oophorectomy, and hysterectomy that presents to the ED with a chief complaint of intermittent abdominal pain that she has been experiencing for the past 5 days. Patient reports that her symptoms are associated with nausea, but denies any fever, vomiting, constipation, diarrhea, or genitourinary symptoms. (Brittany Rockwell Phong) Past Medical History Reviewed: Historical Data, Nursing Documentation, Vital Signs - Medical History PMH: Anxiety, Arthritis, Diabetes (with neuropathy), Diverticulitis, Hypercholesterolemia, Osteoporosis, Parkinson's Disease, TIA Denies: CAD, Gastritis, Gall Bladder Disease, GERD, HIV, Pancreatitis, Chronic Kidney Disease - Surgical History Surgical History: Appendectomy, Cholecystectomy Other surgeries: bilateral oophorectomy, hysterectomy - Family History Family History: States: Unknown Family Hx - Immunization History Hx Tetanus Toxoid Vaccination: No Hx Influenza Vaccination: Yes Hx Pneumococcal Vaccination: Yes <LuliBrittany F - Last Filed: 04/05/17 16:32> <Jordon Anna A - Last Filed: 04/06/17 09:09> Vital Signs: Last Vital Signs Temp 98.0 F 04/04/17 15:29 Pulse 73 04/04/17 19:44 Resp 18 04/04/17 19:44 BP 146/88 04/04/17 19:44 Pulse Ox 99 04/05/17 16:33 - Home Medications Home Medications: Ambulatory Orders Medication Instructions Recorded Alendronate Sodium [Fosamax] 70 mg PO SAT 06/04/15 Simvastatin 20 mg PO HS 06/04/15 Carbidopa/Levodopa [Sinemet 1 tab PO BID 06/29/16] Gabapentin [Neurontin] 300 mg PO DAILY 06/29/16 Pantoprazole Sodium [Protonix] 40 mg PO DAILY 06/29/16 clonazePAM [Klonopin] 0.5 mg PO HS 06/29/16 rOPINIRole [Requip] 2 mg PO TID 06/29/16 Aspirin [Adult Low Dose Aspirin EC] 81 mg PO DAILY #30 tablet. 06/30/16 Naproxen [Naprosyn] 500 mg PO BID PRN #20 tablet 02/28/17 - Allergies Allergies/Adverse Reactions: Allergies Allergy/AdvReac Type Severity Reaction Status Date / Time clarithromycin Allergy NAUSEA Verified 02/28/17 11:28 iodine Allergy SWELLING Verified 02/28/17 11:28 Review of Systems ROS Statement: Except As Marked, All Systems Reviewed And Found Negative Constitutional: Negative for: Fever Gastrointestinal: Positive for: Nausea, Abdominal Pain. Negative for: Vomiting , Diarrhea, Constipation Genitourinary Female: Negative for: Dysuria, Frequency, Incontinence, Hematuria <Brittany Rockwell F - Last Filed: 04/05/17 16:32> Physical Exam - Reviewed Nursing Documentation Reviewed: Yes Vital Signs Reviewed: Yes - Physical Exam Appears: Positive for: Non-toxic, No Acute Distress Head Exam: Positive for: ATRAUMATIC, NORMOCEPHALIC Skin: Positive for: Normal Color, Warm Eye Exam: Positive for: Normal appearance, EOMI, PERRL Cardiovascular/Chest: Positive for: Regular Rate, Rhythm. Negative for: Murmur Respiratory: Positive for: Normal Breath Sounds. Negative for: Wheezing Gastrointestinal/Abdominal: Positive for: Tenderness (RUQ TTP). Negative for: Normal Exam, Guarding Back: Positive for: Normal Inspection. Negative for: L CVA Tenderness, R CVA Tenderness Extremity: Positive for: Normal ROM. Negative for: Deformity, Swelling Neurologic/Psych: Positive for: Alert, Oriented. Negative for: Motor/Sensory Deficits <Brittany Rockwell F - Last Filed: 04/05/17 16:32> - Laboratory Results Result Diagrams: 04/04/17 16:40 04/04/17 16:40 - ECG O2 Sat by Pulse Oximetry: 99 (RA) Pulse Ox Interpretation: Normal <Brittany Rockwell - Last Filed: 04/05/17 16:32> - Laboratory Results Result Diagrams: 04/04/17 16:40 04/04/17 16:40 <Jordon Anna - Last Filed: 04/06/17 09:09> - ECG Interpretation Of ECG: NSR @ 81, no ST-T changes. (Brittany Rockwell) Medical Decision Making <Brittany Rockwell - Last Filed: 04/05/17 16:32> <Jordon Anna - Last Filed: 04/06/17 09:09> Medical Decision Making: Impression: Cholelithiasis vs. Cholecystitis vs. Gastritis Plan: * US Abdomen * EKG * CMP * CBC * PTT * PT * Lipase * Urinalysis * Urine Dip * Morphine 2 mg IV * Zofran 4 mg IV * NaCl 1000 mLs at 125 mLs/hr * Reevaluation Scribe Attestation: Documented by Lilia Gonzáles, acting as a scribe for Brittany Rockwell MD. Provider Scribe Attestation: All medical record entries made by the Scribe were at my direction and personally dictated by me. I have reviewed the chart and agree that the record accurately reflects my personal performance of the history, physical exam, medical decision making, and the department course for this patient. I have also personally directed, reviewed, and agree with the discharge instructions and disposition. (Brittany Rockwell) Disposition - Disposition Disposition: Transfer of Care Disposition Time: 15:30 Patient Signed Over To: Jordon Anna <Brittany Rockwell - Last Filed: 04/05/17 16:32> - Patient ED Disposition Is Patient to be Admitted: No Doctor Will See Patient In The: Office Counseled Patient/Family Regarding: Studies Performed, Diagnosis, Need For Followup - Disposition Disposition Time: 18:36 <Jordon Anna - Last Filed: 04/06/17 09:09> - Clinical Impression Clinical Impression: Abdominal pain - Disposition Condition: STABLE Additional Instructions: Follow up with your PCP in 2-3 days. Instructions: Stomach Ache and Stomach Upset
[2017-04-04 16:53] LABS: BASO % 0.7 % (0.0-2.0); EOS % 0.5 % (0.0-4.0); HEMOGLOBIN 12.9 g/dL (12.0-16.0); LYMPH # 2.4 K/uL (1.0-4.3); LYMPH % 33.5 % (20.0-40.0); MEAN CELL VOLUME 95.5 fl (81.0-99.0); MEAN CORPUSCULAR HEMOGLOBIN 32.1 pg (27.0-31.0); MEAN CORPUSCULAR HGB CONC 33.6 g/dL (33.0-37.0); MEAN PLATELET VOLUME 8.4 fl (7.2-11.7); MONO # 0.6 K/uL (0.0-0.8); NEUT # 4.1 K/uL (1.8-7.0); NEUT % 57.3 % (50.0-75.0); NRBC % 0.1 % (0.0-0.0); RED CELL DISTRIBUTION WIDTH 12.9 % (11.5-14.5); WHITE BLOOD COUNT 7.1 K/uL (4.8-10.8)
[2017-04-04 17:07] LABS: ALB/GLOB RATIO 1.2 (1.0-2.1); ALBUMIN 4.5 g/dL (3.5-5.0); CALCIUM 9.8 mg/dL (8.4-10.2); GFR AFRICAN-AMERICAN > 60; GFR NON-AFRICAN AMERICAN > 60; LIPASE 61 U/L (23-300)
[2017-04-04 17:09] LABS: ALT/SGPT 22 U/L (9-52); AST/SGOT 33 U/L (14-36); BLOOD UREA NITROGEN 22 mg/dl (7-17)
[2017-04-04 17:22] LABS: INR 0.9 (0.9-1.2); PARTIAL THROMBOPLASTIN TIME 20.2 Seconds (25.6-37.1); PROTHROMBIN TIME 10.4 Seconds (9.8-13.1)
--- NOTE | 2017-04-04 17:31 | ED PDOC ---
- Laboratory Results Result Diagrams: 04/04/17 16:40 04/04/17 16:40 - ECG O2 Sat by Pulse Oximetry: 99 (RA) Medical Decision Making Medical Decision Making: Time: 07:00 Patient signed over to me by Dr. Rockwell pending US. Time: 18:45 No acute findings identified on US. Patient will be discharged home with advice to follow up with PCP. Scribe Attestation: Documented by Flip Cooney, acting as a scribe for Jordon Anna MD. Provider Scribe Attestation: All medical record entries made by the Scribe were at my direction and personally dictated by me. I have reviewed the chart and agree that the record accurately reflects my personal performance of the history, physical exam, medical decision making, and the department course for this patient. I have also personally directed, reviewed, and agree with the discharge instructions and disposition. Disposition Discussed With .: Ryan Lunsford Doctor Will See Patient In The: Office Counseled Patient/Family Regarding: Studies Performed, Diagnosis, Need For Followup - Clinical Impression Clinical Impression: Abdominal pain - POA Present On Arrival: None - Disposition Referrals: Ryan Lunsford MD [Family Provider] - Disposition: Routine/Home Disposition Time: 18:45 Condition: FAIR Additional Instructions: Follow up with your PCP in 2-3 days. Instructions: Stomach Ache and Stomach Upset
--- NOTE | 2017-04-04 18:22 | US ---
HISTORY: RUQ pain COMPARISON: Abdominal ultrasound performed 02/28/17 TECHNIQUE: Sonographic evaluation of the right upper quadrant of the abdomen. FINDINGS: LIVER: Measures 12.9 cm in length and appears unremarkable. No focal hepatic mass identified. The main portal vein appears patent with normal directional flow. No intrahepatic bile duct dilatation. GALLBLADDER: No gallstones. No gallbladder wall thickening or pericholecystic edema. Negative sonographic Vaughan's sign as assessed by the client partner. COMMON BILE DUCT: Measures 3 mm. PANCREAS: Not well-visualized. RIGHT KIDNEY: Measures 10.8 x 3.4 x 3.0 cm. No obstructing calculus or hydronephrosis identified. AORTA: Limited visualization appears grossly unremarkable. IVC: Limited visualization appears grossly unremarkable. OTHER FINDINGS: None . IMPRESSION: No acute findings identified.
[2017-04-04 19:45] VITALS: BP 146/88; PULSE 73
[2017-04-05 16:33] VITALS: O2SAT 99
--- NOTE | 2017-04-06 18:19 | CARD ---
APPROVED REPORT EKG Measurement Heart [id number] <Conclusion> Normal sinus rhythm Inferior infarct, age undetermined Abnormal ECG
== END 2017-04-04 18:58 | disposition home or self-care (01) ==
LOC: H.ER 15:04
DX: R10.9 Unspecified abdominal pain (principal); E11.40 Type 2 diabetes mellitus with diabetic neuropathy, unspecified; E78.00 Pure hypercholesterolemia, unspecified; G20 Parkinson's disease; Z86.73 Personal history of transient ischemic attack (TIA), and cerebral infarction without residual deficits; Z79.82 Long term (current) use of aspirin; Z90.710 Acquired absence of both cervix and uterus
CPT/HCPCS: 76705; 80053; 83690; 85025; 85610; 85730; 93005; 96374; 96375; 99283; J2270; J2405; J7040

== ENCOUNTER 2017-10-06 18:07 | Inpatient (IN) | payer MEDICARE ==
[2017-10-06 21:05] VITALS: BMI 24.0
--- NOTE | 2017-10-06 23:23 | CP.PCM.HP ---
History of Present Illness - History of Present Illness History of Present Illness: PMD: Dr Lunsford Neurologist: Dr Klein ([facility]) Chief Complaint: Fall with head trauma The patient was seen and examined in the Acute Rehab Unit HPI: The hx is obtained from the patient and after review of the medical records. This sis a 72 years old female with hx of Arthritis, Diabetic Neuropathy and Parkinson's Disease who was admitted to the [facility] on after a fall resulting of head trauma with laceration to the Occipital region, and with a Radiological diagnosis of Subdural Hematoma. She is transferred here at the [facility] Unit for continued treatment and rehabilitation. The patient refers no headache, dizziness, SOB nor palpitation. She does have some stiffness of the neck. PMH: Anxiety; Arthritis; Diabetes Neuropathy; Diverticulitis; HLD; Osteoporesis : Parkinson's Disease; CVA; DM PSH: Appendectomy; Cholecystectomy; Bilateral Cataract Surgery SH; Never Smoked; No illegal drug use; No Alcohol; live alone FH: States: No known family hx Allergies: Clarithromycin; iodine Medication: Reviewed Present on Admission - Present on Admission Any Indicators Present on Admission: No History of DVT/PE: No History of Uncontrolled Diabetes: No Urinary Catheter: No Decubitus Ulcer Present: No Review of Systems - Constitutional Constitutional: absent: Anorexia, Chills, Fever, Headache, Lethargy - EENT Eyes: absent: Blurred Vision, Diplopia, Floaters Ears: absent: Decreased Hearing, Ear Discharge, Tinnitus Nose/Mouth/Throat: absent: Epistaxis, Nasal Congestion, Nasal Discharge, Sinus Pain, Sinus Pressure - Cardiovascular Cardiovascular: absent: Chest Pain, Dyspnea, Edema - Respiratory Respiratory: absent: Cough, Dyspnea, Wheezing, Stridor - Gastrointestinal Gastrointestinal: absent: Abdominal Pain, Diarrhea, Nausea, Vomiting - Genitourinary Genitourinary: absent: Dysuria, Flank Pain, Urinary Frequency - Musculoskeletal Musculoskeletal: absent: Back Pain - Integumentary Integumentary: absent: Pruritus, Rash, Skin Ulcer, Sores, Striae, Swelling - Neurological Neurological: absent: Confusion, Focal Weakness, Headaches, Loss of Vision - Psychiatric Psychiatric: Anxiety. absent: Panic Attacks - Endocrine Endocrine: absent: Palpitations, Polydipsia, Polyphagia, Polyuria - Hematologic/Lymphatic Hematologic: absent: Easy Bleeding, Easy Bruising Past Patient History - Infectious Disease Hx of Infectious Diseases: None - Past Medical History & Family History Past Medical History?: Yes - Past Social History Smoking Status: Never Smoked Chewing Tobacco Use: No Cigar Use: No Alcohol: None Drugs: Denies Home Situation {Lives}: Alone - CARDIAC Hx Hypercholesterolemia: Yes - PULMONARY Hx Respiratory Disorders: No - NEUROLOGICAL Hx Parkinson's Disease: Yes Hx Transient Ischemic Attacks (TIA): Yes - HEENT Hx HEENT Problems: Yes Hx Cataracts: Yes (HX OF AILEEN. SURGERY) - RENAL Hx Chronic Kidney Disease: No - ENDOCRINE/METABOLIC Hx Endocrine Disorders: No - HEMATOLOGICAL/ONCOLOGICAL Hx Human Immunodeficiency Virus (HIV): No - INTEGUMENTARY Hx Dermatological Problems: No - MUSCULOSKELETAL/RHEUMATOLOGICAL Hx Arthritis: Yes - GASTROINTESTINAL Hx Diverticulitis: Yes Hx Gall Bladder Disease: No Hx Gastritis: No Hx Pancreatitis: No - GENITOURINARY/GYNECOLOGICAL Hx Genitourinary Disorders: No - PSYCHIATRIC Hx Anxiety: Yes Hx Substance Use: No - SURGICAL HISTORY Hx Appendectomy: Yes Hx Cholecystectomy: Yes - ANESTHESIA Hx Anesthesia: Yes Hx Anesthesia Reactions: Yes (delayed awakening) Hx Malignant Hyperthermia: No Meds Allergies/Adverse Reactions: Allergies Allergy/AdvReac Type Severity Reaction Status Date / Time clarithromycin Allergy NAUSEA Verified 10/02/17 11:08 iodine Allergy SWELLING Verified 10/02/17 11:08 Physical Exam - Constitutional Appears: No Acute Distress - Head Exam Head Exam: ATRAUMATIC, NORMAL INSPECTION, NORMOCEPHALIC - Eye Exam Eye Exam: EOMI, Normal appearance Pupil Exam: NORMAL ACCOMODATION, PERRL - ENT Exam ENT Exam: Mucous Membranes Dry, Normal Exam, Normal External Ear Exam - Neck Exam Additional comments: Refers Stiffness on rotating the head to the right. - Respiratory Exam Respiratory Exam: Clear to Auscultation Bilateral. absent: Rales, Rhonchi, Wheezes - Cardiovascular Exam Cardiovascular Exam: REGULAR RHYTHM, RRR, +S1, +S2. absent: Gallop, JVD - GI/Abdominal Exam GI & Abdominal Exam: Normal Bowel Sounds, Soft. absent: Mass, Organomegaly, Tenderness - Rectal Exam Rectal Exam: Deferred - Extremities Exam Extremities exam: Positive for: normal inspection. Negative for: joint swelling , pedal edema, tenderness - Back Exam Back exam: NORMAL INSPECTION. absent: CVA tenderness (L), CVA tenderness (R) - Neurological Exam Neurological exam: Reflexes Normal Additional comments: Awake, alert, oriented, no facial droop, answers to questions in monosyllables, moving both upper extremities and lower extremities - Psychiatric Exam Psychiatric exam: Normal Affect, Normal Mood - Skin Skin Exam: Dry, Normal Color, Warm Results - Imaging and Cardiology CT scan - head Status: Report reviewed by me Additional comment: CT Head (10/03/17): acute right parafalacine subdural hemorrhage. Small right parietal scalp laceration with associated subcutaneous gas. No calvarial fracture. CT Head (10/03/17): Stable head ct including minimal anterior right parafalcine subdural hematoma. No additional acute intracranial findings in the interval. Stable age related neuro degenerative findings are appreciate. Assessment & Plan - Assessment and Plan (Free Text) Assessment: #. Subdural Hematoma #. Parkinson's Disease #. Peripheral neuropathy #. Arthritis Plan: 72 years old female with hx of Arthritis, Diabetic Neuropathy and Parkinson's Disease who was admitted to the [facility] on 10/02/17 after a fall resulting of head trauma with laceration to the Occipital region, and with a Radiological diagnosis of Subdural Hematoma. She is transferred here at the [facility] for continued treatment and rehabilitation. #. Subdural Hematoma CT Head (10/03/17): acute right parafalacine subdural hemorrhage. Small right parietal scalp laceration with associated subcutaneous gas. No calvarial fracture. Per Dr. Cano, imaging findings more likely represent calcification than SDH No Surgery as per Dr Wells Neurosurgery - No anticoagulant - Follow-up with patient's neurologist Dr Klein to address worsening parkinson 's #. Parkinson's Disease - Simemet - PT/OT #. Peripheral neuropathy - Electrolytes - CBC - Neurontin #. Arthritis - Pain management #. DVT prophylaxis with SCD while in bed #. Code Status: Full - Date & Time Date: 10/06/17 Time: 23:23
[2017-10-07] MEDS: Insulin Lispro (humaLOG) 100 Units/ml Inj SC SCH ×3 (06:43→16:54)
[2017-10-07 07:23] LABS: BASO % 0.3 % (0.0-2.0); EOS # 0.2 K/uL (0.0-0.7); EOS % 1.9 % (0.0-4.0); HEMOGLOBIN 12.8 g/dL (12.0-16.0); LYMPH # 2.1 K/uL (1.0-4.3); LYMPH % 26.7 % (20.0-40.0); MEAN CELL VOLUME 95.9 fl (81.0-99.0); MEAN CORPUSCULAR HEMOGLOBIN 32.2 pg (27.0-31.0); MEAN CORPUSCULAR HGB CONC 33.5 g/dL (33.0-37.0); MEAN PLATELET VOLUME 8.7 fl (7.2-11.7); MONO # 0.9 K/uL (0.0-0.8); MONO % 11.1 % (0.0-10.0); NEUT # 4.8 K/uL (1.8-7.0); RBC 3.97 Mil/uL (3.80-5.20); RED CELL DISTRIBUTION WIDTH 13.2 % (11.5-14.5)
[2017-10-07 07:33] LABS: BLOOD UREA NITROGEN 20 mg/dl (7-17); CALCIUM 9.3 mg/dL (8.4-10.2); GFR NON-AFRICAN AMERICAN > 60
[2017-10-07] MEDS: Pantoprazole 40 mg EC Tab PO SCH (08:46)
--- NOTE | 2017-10-07 21:39 | PCM.OPOC ---
Physiatry Overall Plan of Care - Overall Plan of Care Estimated Length of Stay in Weeks: 3 Rehab Impairment: Mobility, Gait, Balance, Coordination Etiologic Diagnosis: Other (Parkinson's exacerbation) Rehab/Medical Prognosis: Fair - Anticipated Interventions Physical Therapy:: Yes Occupational Therapy:: Yes Speech Therapy:: Yes Recreational Therapy:: No - Therapy Goals Bed Mobility: Supervision Ambulation: Supervision Functional Positional Changes:: Supervision - Discharge Plan Identification of Barriers to Discharge: Home Situation Discharge Destination: Home
--- NOTE | 2017-10-07 21:41 | CP.PCM.CON ---
History of Present Illness - History of Present Illness History of Present Illness: Dr Johnson PMR consultation on Monica Alvarenga, born 1945 who has been admitted to [facility] for acute inpatient rehabilitation following an admission at [facility] with an exacerbation of Parkinson's and reduced functional capacity. Lives alone at home and has had falls. Review of Systems - Constitutional Constitutional: absent: Chills - EENT Eyes: absent: Change in Vision Ears: absent: Decreased Hearing, Ear Discharge Nose/Mouth/Throat: absent: Nasal Congestion - Cardiovascular Cardiovascular: absent: Chest Pain, Pain Radiating to Arm/Neck/Jaw - Respiratory Respiratory: absent: Dyspnea, Wheezing, Pain on Inspiration - Gastrointestinal Gastrointestinal: absent: Belching, Constipation, Cramping - Musculoskeletal Musculoskeletal: Muscle Weakness, Stiffness. absent: Joint Swelling - Integumentary Integumentary: absent: Bleeding Lesions Past Patient History - Infectious Disease Hx of Infectious Diseases: None - Past Medical History & Family History Past Medical History?: Yes - Past Social History Smoking Status: Never Smoked Chewing Tobacco Use: No Cigar Use: No Alcohol: None Drugs: Denies Home Situation {Lives}: Alone - CARDIAC Hx Hypercholesterolemia: Yes - PULMONARY Hx Respiratory Disorders: No - NEUROLOGICAL Hx Parkinson's Disease: Yes Hx Transient Ischemic Attacks (TIA): Yes - HEENT Hx HEENT Problems: Yes Hx Cataracts: Yes (HX OF AILEEN. SURGERY) - RENAL Hx Chronic Kidney Disease: No - ENDOCRINE/METABOLIC Hx Endocrine Disorders: No - HEMATOLOGICAL/ONCOLOGICAL Hx Human Immunodeficiency Virus (HIV): No - INTEGUMENTARY Hx Dermatological Problems: No - MUSCULOSKELETAL/RHEUMATOLOGICAL Hx Arthritis: Yes - GASTROINTESTINAL Hx Diverticulitis: Yes Hx Gall Bladder Disease: No Hx Gastritis: No Hx Pancreatitis: No - GENITOURINARY/GYNECOLOGICAL Hx Genitourinary Disorders: No - PSYCHIATRIC Hx Anxiety: Yes Hx Substance Use: No - SURGICAL HISTORY Hx Appendectomy: Yes Hx Cholecystectomy: Yes - ANESTHESIA Hx Anesthesia: Yes Hx Anesthesia Reactions: Yes (delayed awakening) Hx Malignant Hyperthermia: No Meds Allergies/Adverse Reactions: Allergies Allergy/AdvReac Type Severity Reaction Status Date / Time clarithromycin Allergy NAUSEA Verified 10/02/17 11:08 iodine Allergy SWELLING Verified 10/02/17 11:08 - Medications Medications: Current Medications Acetaminophen (Tylenol 325mg Tab) 650 mg PO Q6 PRN PRN Reason: Pain, moderate (4-7) Last Admin: 10/07/17 16:52 Dose: 650 mg Atorvastatin Calcium (Lipitor) 10 mg PO HS [facility] Last Admin: 10/07/17 21:16 Dose: 10 mg Carbidopa/Levodopa (Sinemet 10/100) 1 tab PO BID [facility] Last Admin: 10/07/17 16:55 Dose: 1 tab Docusate Sodium (Colace) 100 mg PO DAILY [facility] Last Admin: 10/07/17 08:45 Dose: 100 mg Gabapentin (Neurontin) 300 mg PO DAILY [facility] Last Admin: 10/07/17 08:46 Dose: 300 mg Pantoprazole Sodium (Protonix Ec Tab) 40 mg PO DAILY [facility] Last Admin: 10/07/17 08:46 Dose: 40 mg Primidone (Mysoline) 50 mg PO [facility] Last Admin: 10/07/17 21:16 Dose: 50 mg Physical Exam - Constitutional Appears: Non-toxic, Other (masked facies) - Head Exam Head Exam: ATRAUMATIC, NORMAL INSPECTION - Eye Exam Eye Exam: EOMI - ENT Exam ENT Exam: Mucous Membranes Moist - Respiratory Exam Respiratory Exam: NORMAL BREATHING PATTERN - Cardiovascular Exam Cardiovascular Exam: REGULAR RHYTHM - GI/Abdominal Exam GI & Abdominal Exam: Normal Bowel Sounds. absent: Distended - Extremities Exam Extremities exam: Negative for: full ROM (Limited ROM with stiffness left > right UE ) - Neurological Exam Neurological exam: Alert, Oriented x3 - Psychiatric Exam Psychiatric exam: Flat Affect - Skin Skin Exam: Warm Results - Vital Signs Recent Vital Signs: Last Vital Signs Temp 97.3 F L 10/07/17 19:49 Pulse 84 10/07/17 19:49 Resp 20 10/07/17 19:49 BP 112/63 10/07/17 19:49 Pulse Ox 97 10/07/17 19:49 - Labs Result Diagrams: 10/07/17 06:30 10/07/17 06:30 Labs: Laboratory Results - last 24 hr 10/07/17 10/07/17 10/07/17 05:33 06:30 06:30 WBC 8.0 RBC 3.97 Hgb 12.8 Hct 38.1 MCV 95.9 MCH 32.2 H MCHC 33.5 RDW 13.2 Plt Count 243 MPV 8.7 Neut % (Auto) 60.0 Lymph % (Auto) 26.7 Mckinley % (Auto) 11.1 H Eos % (Auto) 1.9 Baso % (Auto) 0.3 Neut # (Auto) 4.8 Lymph # (Auto) 2.1 Mckinley # (Auto) 0.9 H Eos # (Auto) 0.2 Baso # (Auto) 0.0 Sodium 139 Potassium 4.4 Chloride 102 Carbon Dioxide 30 Anion Gap 11 BUN 20 H Creatinine 0.9 Est GFR ( Amer) > 60 Est GFR (Non-Af Amer) > 60 POC Glucose (mg/dL) 104 Random Glucose 101 Hemoglobin A1c Calcium 9.3 10/07/17 10/07/17 10/07/17 06:30 11:06 15:43 WBC RBC Hgb Hct MCV MCH MCHC RDW Plt Count MPV Neut % (Auto) Lymph % (Auto) Mckinley % (Auto) Eos % (Auto) Baso % (Auto) Neut # (Auto) Lymph # (Auto) Mckinley # (Auto) Eos # (Auto) Baso # (Auto) Sodium Potassium Chloride Carbon Dioxide Anion Gap BUN Creatinine Est GFR ( Amer) Est GFR (Non-Af Amer) POC Glucose (mg/dL) 95 177 H Random Glucose Hemoglobin A1c 5.6 Calcium Assessment & Plan - Assessment and Plan (Free Text) Assessment: PT/OT to continue to help increase functional independence Team conference for d/c planning Pain: controlled Vascular: no evidence of DVT GI: No evidence of constipation or diarrhea Patient is an excellent acute rehabilitation candidate and will have focused PT , OT and recreational therapy to help facilitate a safe and appropriate d/c plan
[2017-10-08] MEDS: Pantoprazole 40 mg EC Tab PO SCH (08:24)
[2017-10-09] MEDS: Pantoprazole 40 mg EC Tab PO SCH (08:45)
--- NOTE | 2017-10-09 09:23 | PSY.TMCNF ---
Nursing - Vital Signs Vital Signs (Last 8 hours): Vital Signs 10/09/17 10/09/17 08:00 08:59 Temperature 98.1 F 98.1 F Pulse Rate 90 90 Respiratory 20 20 Rate Blood Pressure 112/70 112/70 O2 Sat by Pulse 98 Oximetry Pain: 0 - Precautions: Precautions: Fall Prevention - Medications/Other Issues Comment: with episode of tachycardia 10/07/2017 no new meds denies palpatation - Consults Comment: DR Johnson - Skin Incision Site: posterior portion scalp with 3 sutures Dressing Status: Clean, Dry, Intact Incision: Sutures Intact Incision Line Treatment: open to air - Toileting Toileting: Moderate Assistance - Bladder Management Bladder Pattern: Normal Voiding Method: Toilet, Bedpan Bladder Management: Minimal Assistance - Bowel Management Bowel Pattern: Normal Bowel Management: Minimal Assistance - Transfers Transfers: Moderate Assistance - ADL's ADL's: Minimal Assistance - Pain Management Comments: on tylenol for pain gabapentin for neuropathy - Patient/Family Teaching Comments: Safety fall medication teachings - Goals/Time Frame Comments: as per multidiciplinary plan of care - Provider Provider: Kymberly Ash Physical Therapy - Bed Mobility Bed Mobility: Verbal Cues, Minimal Assistance, Moderate Assistance - Transfers Wheelchair to Mat: Verbal Cues, Moderate Assistance Sit to Stand: Verbal Cues, Minimal Assistance, Moderate Assistance Comment: RW - Ambulation Level of Assistance: Minimal Assistance, Moderate Assistance Distance (ft.): 45 Assistive Devices: Rolling Walker Orthoses: n/a Comment: -45 feet with RW with gait typical of Parkinsonism, mod A. -shuffling pattern noted at times. -freezing of gait noted (increased during turns, with distracting environment, changes of tile colors and through doorways). -lack of heel strike with lack of heel contact with floor through all phases of gait with forefoot contact during gait. -forward flexion over walker with decreased walker control and downward gaze with forward flexed and stooped postural control - Stair Negotiation Stairs: Level of Assistance: Not Tested Comment: does not negotiate stais pre-morbidly in community - Standing Balance Static Stand: Moderate Assistance Dynamic Stand: Moderate Assistance Comment: initial posterior leaning with gait requiring cues to shift frwards - Pain Pain (assessed during therapy session): 0 Comment: denies pain at rest. -pain is noted at the L ankle proximal above medial malleouls with palpation - Insight/Carryover Insight/Carryover: Fair - Patient/Family Education Comment: -supportive family. -educated on therapy schedule, therapy goals, mobility, POC, safety, use of call edmonds, not getting up alone - Assessment/Plan Assessment: Ms. Alvarenga is a 72 year old female admitted to acute rehab s/p exacerbation of Parkinson's with history of recent posterior fall with posterior scalp laceration. Patient requires mod A for all mobility. Pt is limited by neurological changes due to stage of Parkinson's which including rigidity, impaired initiation, freezing of gait, shuffling, and impaired motor control. PT recommends skilled therapy 5-6x per week for 3 weeks to maximize safety and independnece with all mobility prior to community discharge. - Goals Timeframe: 7 days Goals: -min A with bed/mat mobility. -CG with sit to/from stand. -min A with stand pivot transfers. -ambulate 50 feet with rolling walker with min A - Provider Therapist: Lynda Henry PT, DPT License Number: [id number] Occupational Therapy - Arousal/Attention/Orientation Patient Orientation: Person, Place, Appropriate to Age, Appropriate to Situation - ADL/IADL Self Feeding: Set-up Help Grooming: Set-up Help Dressing-Upper Extremity: Minimal Assistance Dressing-Lower Extremity: Moderate Assistance - Sitting Balance Static Sitting: Independent without upper extremity support Dynamic Sitting: Requires supervision - Transfers Wheelchair to Bed Transfers: Minimal Assistance, Moderate Assistance Toilet Transfers: Minimal Assistance, Moderate Assistance - Wheelchair Management Level of Assistance: Minimal Assistance Distance (ft.): 75 - Upper Extremity Status Right Upper Extremity Comment: AROM WFLs Left Upper Extremity Comment: AROM 100 degrees. PROM WFLs - Pain Pain (assessed during therapy session): 0 Comment: denies pain at rest. -pain is noted at the L ankle proximal above medial malleouls with palpation - Insight/Carryover Insight/Carryover: Fair - Patient/Family Education Comment: -supportive family. -educated on therapy schedule, therapy goals, mobility, POC, safety, use of call edmonds, not getting up alone - Assessment/Plan Assessment: Ms. Alvarenga is a 72 year old female admitted to acute rehab s/p exacerbation of Parkinson's with history of recent posterior fall with posterior scalp laceration. Patient requires mod A for all mobility. Pt is limited by neurological changes due to stage of Parkinson's which including rigidity, impaired initiation, freezing of gait, shuffling, and impaired motor control. PT recommends skilled therapy 5-6x per week for 3 weeks to maximize safety and independnece with all mobility prior to community discharge. - Goals Timeframe: 7 days Goals: -min A with bed/mat mobility. -CG with sit to/from stand. -min A with stand pivot transfers. -ambulate 50 feet with rolling walker with min A - Provider Therapist: KELLEY Pendleton/Gold License Number: [id number] Speech Therapy - Plan Assessment: Ms. Alvarenga is a 72 year old female admitted to acute rehab s/p exacerbation of Parkinson's with history of recent posterior fall with posterior scalp laceration. Patient requires mod A for all mobility. Pt is limited by neurological changes due to stage of Parkinson's which including rigidity, impaired initiation, freezing of gait, shuffling, and impaired motor control. PT recommends skilled therapy 5-6x per week for 3 weeks to maximize safety and independnece with all mobility prior to community discharge. Recreational Therapy - Assessment Assessment/Plan: Ms. Alvarenga is a 72 year old female admitted to acute rehab s/p exacerbation of Parkinson's with history of recent posterior fall with posterior scalp laceration. Patient requires mod A for all mobility. Pt is limited by neurological changes due to stage of Parkinson's which including rigidity, impaired initiation, freezing of gait, shuffling, and impaired motor control. PT recommends skilled therapy 5-6x per week for 3 weeks to maximize safety and independnece with all mobility prior to community discharge. Nutrition - Current Diet Current Diet/ Supplement/ Feedings: Moderate consistent CHO heart healthy advanced bite size - Appetite Percent Meal Consumed: 50-74% - Comments Comments: Safety fall medication teachings - Assessment/Goals/Time Frame Assessment/Goals/Time Frame: with episode of tachycardia 10/07/2017 no new meds denies palpatation - Provider Provider: Paola Kunz RD Rehabilitation Plan - Treatment Plan Treatment Plan: Physical Therapy, Occupational Therapy, Speech, Dietary, Patient /Family Education - Recommendation Recommendation: Physical Therapy, Occupational Therapy, Speech, Dietary, Patient /Family Education - Discharge Plan Discharge to: Home
--- NOTE | 2017-10-09 09:45 | CP.PCM.PN ---
Subjective - Date & Time of Evaluation Date of Evaluation: 10/09/17 Time of Evaluation: 09:44 - Subjective Subjective: Patient seen in the room feels stiff like cement neuro consult has been called to maximize PD medications to better facilitate therapies questionable history of sporadic non-compliance with meds at home Objective - Vital Signs/Intake and Output Vital Signs (last 24 hours): Temp Pulse Resp BP Pulse Ox 98.1 F 90 20 112/70 98 10/09/17 08:59 10/09/17 08:59 10/09/17 08:59 10/09/17 08:59 10/09/17 08:00 - Medications Medications: Current Medications Acetaminophen (Tylenol 325mg Tab) 650 mg PO Q6 PRN PRN Reason: Pain, moderate (4-7) Last Admin: 10/08/17 12:16 Dose: 650 mg Atorvastatin Calcium (Lipitor) 10 mg PO [facility] Last Admin: 10/08/17 21:40 Dose: 10 mg Carbidopa/Levodopa (Sinemet 10/100) 1 tab PO BID [facility] Last Admin: 10/09/17 08:44 Dose: 1 tab Docusate Sodium (Colace) 100 mg PO DAILY [facility] Last Admin: 10/09/17 08:44 Dose: 100 mg Gabapentin (Neurontin) 300 mg PO DAILY [facility] Last Admin: 10/09/17 08:45 Dose: 300 mg Pantoprazole Sodium (Protonix Ec Tab) 40 mg PO DAILY [facility] Last Admin: 10/09/17 08:45 Dose: 40 mg Primidone (Mysoline) 50 mg PO [facility] Last Admin: 10/08/17 21:40 Dose: 50 mg - Labs Labs: 10/07/17 06:30 10/07/17 06:30
--- NOTE | 2017-10-10 00:01 | CP.PCM.CON ---
History of Present Illness - History of Present Illness History of Present Illness: Neurology Consultation Note: Mrs. Alvarenga is a 72-year-old woman with a past medical history of DM, neuropathy, Parkinson's Disease (patient of Dr. Klein), who is in acute rehab after sustaining a fall with subsequent subdural hematoma. She is managed with Sinemet 100/10 TID, but in the hospital she seems to be receiving only BID dosing and states that she feels that she is more symptomatic when she receives less of her medication. She tends to have worse dyskinesias when she receives the rotigotine (Neupro) patch, and has not received it while in the hospital. She believes that she is better without it. Review of Systems - Review of Systems All systems: reviewed and no additional remarkable complaints except Past Patient History - Infectious Disease Hx of Infectious Diseases: None - Past Medical History & Family History Past Medical History?: Yes - Past Social History Smoking Status: Never Smoked Chewing Tobacco Use: No Cigar Use: No Alcohol: None Drugs: Denies Home Situation {Lives}: Alone - CARDIAC Hx Hypercholesterolemia: Yes - PULMONARY Hx Respiratory Disorders: No - NEUROLOGICAL Hx Parkinson's Disease: Yes Hx Transient Ischemic Attacks (TIA): Yes - HEENT Hx HEENT Problems: Yes Hx Cataracts: Yes (HX OF AILEEN. SURGERY) - RENAL Hx Chronic Kidney Disease: No - ENDOCRINE/METABOLIC Hx Diabetes Mellitus Type 2: Yes - HEMATOLOGICAL/ONCOLOGICAL Hx Human Immunodeficiency Virus (HIV): No - INTEGUMENTARY Hx Dermatological Problems: No - MUSCULOSKELETAL/RHEUMATOLOGICAL Hx Arthritis: Yes - GASTROINTESTINAL Hx Diverticulitis: Yes Hx Gall Bladder Disease: No Hx Gastritis: No Hx Pancreatitis: No - GENITOURINARY/GYNECOLOGICAL Hx Genitourinary Disorders: No - PSYCHIATRIC Hx Anxiety: Yes Hx Substance Use: No - SURGICAL HISTORY Hx Appendectomy: Yes Hx Cholecystectomy: Yes - ANESTHESIA Hx Anesthesia: Yes Hx Anesthesia Reactions: Yes (delayed awakening) Hx Malignant Hyperthermia: No Meds Allergies/Adverse Reactions: Allergies Allergy/AdvReac Type Severity Reaction Status Date / Time clarithromycin Allergy NAUSEA Verified 10/02/17 11:08 iodine Allergy SWELLING Verified 10/02/17 11:08 - Medications Medications: Current Medications Acetaminophen (Tylenol 325mg Tab) 650 mg PO Q6 PRN PRN Reason: Pain, moderate (4-7) Last Admin: 10/08/17 12:16 Dose: 650 mg Atorvastatin Calcium (Lipitor) 10 mg PO [facility] Last Admin: 10/09/17 21:17 Dose: 10 mg Carbidopa/Levodopa (Sinemet 10/100) 1 tab PO TID [facility] Docusate Sodium (Colace) 100 mg PO DAILY [facility] Last Admin: 10/09/17 08:44 Dose: 100 mg Gabapentin (Neurontin) 300 mg PO DAILY [facility] Last Admin: 10/09/17 08:45 Dose: 300 mg Pantoprazole Sodium (Protonix Ec Tab) 40 mg PO DAILY [facility] Last Admin: 10/09/17 08:45 Dose: 40 mg Primidone (Mysoline) 50 mg PO [facility] Last Admin: 10/09/17 21:17 Dose: 50 mg Physical Exam - Neurological Exam Neurological exam: Abnormal Gait, Alert, CN II-XII Intact, Oriented x3, Reflexes Normal Additional comments: Bradykinesia is worse on the left side, tremor noted, rigidity noted, and flat facies. Strength is symmetrical. Sensation is intact. Gait was deferred due to patient stating she felt weak. Results - Vital Signs Recent Vital Signs: Last Vital Signs Temp 98.1 F 10/09/17 08:59 Pulse 90 10/09/17 08:59 Resp 20 10/09/17 08:59 BP 112/70 10/09/17 08:59 Pulse Ox 98 10/09/17 08:00 - Labs Result Diagrams: 10/07/17 06:30 10/07/17 06:30 Assessment & Plan (1) Parkinson disease Assessment and Plan: Will resume Sinemet 100/10 TID and hold Neupro. Will consider Amantadine 100 mg BID if she does not improve. Continue PT per rehab team. Follow up with Dr. Klein for neurology. Thank you. Status: Chronic
[2017-10-10] MEDS: Pantoprazole 40 mg EC Tab PO SCH (08:51)
--- NOTE | 2017-10-10 11:55 | CP.PCM.PN ---
Subjective - Date & Time of Evaluation Date of Evaluation: 10/10/17 Time of Evaluation: 11:45 - Subjective Subjective: Ms. Alvarenga was seen and examined at the bedside. She is alert, oriented, denies any headache, dizziness, blurred vision, diplopia. She claims of actively participating during therapy session but remains weak with her lower extremities., She uses wheelchair to move around the unit. There was no untoward events overnight. Objective - Vital Signs/Intake and Output Vital Signs (last 24 hours): Temp Pulse Resp BP Pulse Ox 98.2 F 95 H 20 127/66 99 10/10/17 08:56 10/10/17 08:56 10/10/17 08:56 10/10/17 08:56 10/10/17 08:56 - Medications Medications: Current Medications Acetaminophen (Tylenol 325mg Tab) 650 mg PO Q6 PRN PRN Reason: Pain, moderate (4-7) Last Admin: 10/08/17 12:16 Dose: 650 mg Alendronate Sodium (Fosamax) 70 mg PO FRI [facility] Atorvastatin Calcium (Lipitor) 10 mg PO [facility] Last Admin: 10/09/17 21:17 Dose: 10 mg Carbidopa/Levodopa (Sinemet 10/100) 1 tab PO TID [facility] Last Admin: 10/10/17 08:52 Dose: 1 tab Docusate Sodium (Colace) 100 mg PO DAILY [facility] Last Admin: 10/10/17 08:51 Dose: 100 mg Gabapentin (Neurontin) 300 mg PO DAILY [facility] Last Admin: 10/10/17 08:51 Dose: 300 mg Pantoprazole Sodium (Protonix Ec Tab) 40 mg PO DAILY [facility] Last Admin: 10/10/17 08:51 Dose: 40 mg Primidone (Mysoline) 50 mg PO [facility] Last Admin: 10/09/17 21:17 Dose: 50 mg - Labs Labs: 10/07/17 06:30 10/07/17 06:30 - Constitutional Appears: No Acute Distress - Head Exam Head Exam: NORMAL INSPECTION - Eye Exam Pupil Exam: PERRL - Neurological Exam Neuro motor strength exam: Left Upper Extremity: 4, Right Upper Extremity: 4, Left Lower Extremity: 3, Right Lower Extremity: 3 Additional comments: alert, oriented, follows commands, sensation is intact. Assessment and Plan (1) Parkinson disease Assessment & Plan: Continue all current medical, physical, and occupational therapies. Recommend to follow up with Dr. Klein as an outpatient, treat any electrolyte abnormalities. Status: Chronic
--- NOTE | 2017-10-10 14:14 | CP.PCM.PN ---
Subjective - Date & Time of Evaluation Date of Evaluation: 10/10/17 Time of Evaluation: 13:30 - Subjective Subjective: Patient seen and examined. Denied any complaint. Requested that stitches on the back of her head be removed since they were more than a week ago. Objective - Vital Signs/Intake and Output Vital Signs (last 24 hours): Temp Pulse Resp BP Pulse Ox 98.2 F 95 H 20 127/66 99 10/10/17 08:56 10/10/17 08:56 10/10/17 08:56 10/10/17 08:56 10/10/17 08:56 - Medications Medications: Current Medications Acetaminophen (Tylenol 325mg Tab) 650 mg PO Q6 PRN PRN Reason: Pain, moderate (4-7) Last Admin: 10/08/17 12:16 Dose: 650 mg Alendronate Sodium (Fosamax) 70 mg PO FRI [facility] Atorvastatin Calcium (Lipitor) 10 mg PO HS [facility] Last Admin: 10/09/17 21:17 Dose: 10 mg Carbidopa/Levodopa (Sinemet 10/100) 1 tab PO TID [facility] Last Admin: 10/10/17 12:25 Dose: 1 tab Docusate Sodium (Colace) 100 mg PO DAILY [facility] Last Admin: 10/10/17 08:51 Dose: 100 mg Gabapentin (Neurontin) 300 mg PO DAILY [facility] Last Admin: 10/10/17 08:51 Dose: 300 mg Pantoprazole Sodium (Protonix Ec Tab) 40 mg PO DAILY [facility] Last Admin: 10/10/17 08:51 Dose: 40 mg Primidone (Mysoline) 50 mg PO [facility] Last Admin: 10/09/17 21:17 Dose: 50 mg - Labs Labs: 10/07/17 06:30 10/07/17 06:30 - Constitutional Appears: No Acute Distress - Head Exam Head Exam: ATRAUMATIC - Eye Exam Eye Exam: absent: Scleral icterus - ENT Exam ENT Exam: Mucous Membranes Moist - Neck Exam Neck Exam: absent: Meningismus - Respiratory Exam Respiratory Exam: absent: Rales, Rhonchi, Wheezes, Respiratory Distress - Cardiovascular Exam Cardiovascular Exam: REGULAR RHYTHM, +S1, +S2 - GI/Abdominal Exam GI & Abdominal Exam: Soft. absent: Tenderness - Rectal Exam Rectal Exam: Deferred - Extremities Exam Extremities Exam: absent: Calf Tenderness, Pedal Edema - Back Exam Back Exam: NORMAL INSPECTION - Neurological Exam Neurological Exam: Alert, Oriented x3 - Psychiatric Exam Psychiatric exam: Normal Affect - Skin Skin Exam: Dry, Intact Assessment and Plan - Assessment and Plan (Free Text) Assessment: 72 yo female with history of Arthritis, DM2 with Peripheral Neuropathy and Parkinson's Disease was admitted at [facility] on 10/02/17 because of head trauma after a fall. She sustained laceration at the occipital region and subdural hematoma. She was transferred to [facility] and got admitted in TCU for continued management and therapy. 1. Subdural Hematoma as per Dr Cano, findings on imagings were more consistent with calcification than subdural hematoma neurosurgery consult agreed that no surgery is necessary 2. Parkinson's Disease continue Sinemet continue PT/OT 3. Peripheral neuropathy secondary to diabetes continue Neurontin 4. DVT prophylaxis venodyne boots while in bed
[2017-10-11] MEDS: Pantoprazole 40 mg EC Tab PO SCH (08:30)
--- NOTE | 2017-10-11 10:10 | CP.PCM.PN ---
Subjective - Date & Time of Evaluation Date of Evaluation: 10/11/17 Time of Evaluation: 10:10 - Subjective Subjective: Ms. Alvarenag was seen and examined at the bedside. She is alert, oriented, denies any headache, dizziness, blurred vision, diplopia. She claims of actively participating during therapy session but remains weak with her lower extremities., She uses wheelchair to move around the unit. There was no untoward events overnight. Objective - Vital Signs/Intake and Output Vital Signs (last 24 hours): Temp Pulse Resp BP Pulse Ox 97.7 F 82 18 134/72 98 10/11/17 08:06 10/11/17 08:06 10/11/17 08:06 10/11/17 08:06 10/11/17 08:06 - Medications Medications: Current Medications Acetaminophen (Tylenol 325mg Tab) 650 mg PO Q6 PRN PRN Reason: Pain, moderate (4-7) Last Admin: 10/10/17 14:59 Dose: 650 mg Alendronate Sodium (Fosamax) 70 mg PO [facility] Atorvastatin Calcium (Lipitor) 10 mg PO [facility] Last Admin: 10/10/17 21:01 Dose: 10 mg Carbidopa/Levodopa (Sinemet 10/100) 1 tab PO TID [facility] Last Admin: 10/11/17 08:30 Dose: 1 tab Docusate Sodium (Colace) 100 mg PO DAILY [facility] Last Admin: 10/11/17 08:30 Dose: 100 mg Gabapentin (Neurontin) 300 mg PO DAILY [facility] Last Admin: 10/11/17 08:29 Dose: 300 mg Pantoprazole Sodium (Protonix Ec Tab) 40 mg PO DAILY [facility] Last Admin: 10/11/17 08:30 Dose: 40 mg Primidone (Mysoline) 50 mg PO [facility] Last Admin: 10/10/17 21:01 Dose: 50 mg - Labs Labs: 10/07/17 06:30 10/07/17 06:30 - Constitutional Appears: No Acute Distress - Head Exam Head Exam: NORMAL INSPECTION - Eye Exam Pupil Exam: PERRL - Neurological Exam Neurological Exam: Alert, Awake, Oriented x3 Neuro motor strength exam: Left Upper Extremity: 4, Right Upper Extremity: 4, Left Lower Extremity: 3, Right Lower Extremity: 3 Additional comments: neurological unchanged from previous examination. Assessment and Plan (1) Parkinson disease Assessment & Plan: Continue all current medical, physical, and occupational therapies. Recommend to follow up with Dr. Klein as an outpatient, treat any electrolyte abnormalities. Status: Chronic
--- NOTE | 2017-10-11 18:22 | CP.PCM.PN ---
Subjective - Date & Time of Evaluation Date of Evaluation: 10/11/17 Time of Evaluation: 18:21 - Subjective Subjective: Patient seen in the room, doing ok had hard work in therapy appreciates efforts didn't feel did as well today as yesterday neuro input still pending for medication Objective - Vital Signs/Intake and Output Vital Signs (last 24 hours): Temp Pulse Resp BP Pulse Ox 97.7 F 82 18 134/72 98 10/11/17 08:06 10/11/17 08:06 10/11/17 08:06 10/11/17 08:06 10/11/17 08:06 - Medications Medications: Current Medications Acetaminophen (Tylenol 325mg Tab) 650 mg PO Q6 PRN PRN Reason: Pain 1-10. Alendronate Sodium (Fosamax) 70 mg PO FRI [facility] Atorvastatin Calcium (Lipitor) 10 mg PO HS [facility] Last Admin: 10/10/17 21:01 Dose: 10 mg Carbidopa/Levodopa (Sinemet 10/100) 1 tab PO TID [facility] Last Admin: 10/11/17 17:05 Dose: 1 tab Docusate Sodium (Colace) 100 mg PO DAILY [facility] Last Admin: 10/11/17 08:30 Dose: 100 mg Gabapentin (Neurontin) 300 mg PO DAILY [facility] Last Admin: 10/11/17 08:29 Dose: 300 mg Pantoprazole Sodium (Protonix Ec Tab) 40 mg PO DAILY [facility] Last Admin: 10/11/17 08:30 Dose: 40 mg Primidone (Mysoline) 50 mg PO [facility] Last Admin: 10/10/17 21:01 Dose: 50 mg - Labs Labs: 10/07/17 06:30 10/07/17 06:30
[2017-10-12] MEDS: ALENDRONATE 70 MG TAB PO SCH (06:52)
--- NOTE | 2017-10-12 07:53 | CP.PCM.CON ---
History of Present Illness - History of Present Illness History of Present Illness: Pt is a 72 year old female admitted to [facility] and referred to the publications writer for evaluation. Med history positive for fall, Parkinson's, arthritis, osteoporosis. See medical record for compete medical history and medications. Social History: Pt reported living alone, she has three children-2 in [place] and 1 in [place]. Pt reported help obtained from her daughter in law and family. Pt reported positive family relationships. Ed/Voc: pt raised in [place], 6th grade education. Pt worked as a homemaker. Pt denied a hx of psych intervention, pt denied a history of alcohol/substance abuse. Pt spoke of spending her time at home with friends visiting at times. Pt denied depression at present. She acknowledged dysphoria and the desire to improve her strength and mobility. MSE: Pt alert, oriented to year, month, day and not date, affect constricted, mood dysphoric over status, no psychosis, no si no hi ideation. Cognitive strategies reviewed to reduce distress. Dx: Adjustment Dx with depression Plan: Continued Sup therapy Past Patient History - Infectious Disease Hx of Infectious Diseases: None - Past Medical History & Family History Past Medical History?: Yes - Past Social History Smoking Status: Never Smoked Chewing Tobacco Use: No Cigar Use: No Alcohol: None Drugs: Denies Home Situation {Lives}: Alone - CARDIAC Hx Hypercholesterolemia: Yes - PULMONARY Hx Respiratory Disorders: No - NEUROLOGICAL Hx Parkinson's Disease: Yes Hx Transient Ischemic Attacks (TIA): Yes - HEENT Hx HEENT Problems: Yes Hx Cataracts: Yes (HX OF AILEEN. SURGERY) - RENAL Hx Chronic Kidney Disease: No - ENDOCRINE/METABOLIC Hx Diabetes Mellitus Type 2: Yes - HEMATOLOGICAL/ONCOLOGICAL Hx Human Immunodeficiency Virus (HIV): No - INTEGUMENTARY Hx Dermatological Problems: No - MUSCULOSKELETAL/RHEUMATOLOGICAL Hx Arthritis: Yes - GASTROINTESTINAL Hx Diverticulitis: Yes Hx Gall Bladder Disease: No Hx Gastritis: No Hx Pancreatitis: No - GENITOURINARY/GYNECOLOGICAL Hx Genitourinary Disorders: No - PSYCHIATRIC Hx Anxiety: Yes Hx Substance Use: No - SURGICAL HISTORY Hx Appendectomy: Yes Hx Cholecystectomy: Yes - ANESTHESIA Hx Anesthesia: Yes Hx Anesthesia Reactions: Yes (delayed awakening) Hx Malignant Hyperthermia: No Meds Allergies/Adverse Reactions: Allergies Allergy/AdvReac Type Severity Reaction Status Date / Time clarithromycin Allergy NAUSEA Verified 10/02/17 11:08 iodine Allergy SWELLING Verified 10/02/17 11:08 - Medications Medications: Current Medications Acetaminophen (Tylenol 325mg Tab) 650 mg PO Q6 PRN PRN Reason: Pain 1-10. Alendronate Sodium (Fosamax) 70 mg PO FRI@0630 [facility] Last Admin: 10/12/17 06:52 Dose: 70 mg Atorvastatin Calcium (Lipitor) 10 mg PO HS [facility] Last Admin: 10/11/17 21:01 Dose: 10 mg Carbidopa/Levodopa (Sinemet 10/100) 1 tab PO TID [facility] Last Admin: 10/11/17 17:05 Dose: 1 tab Docusate Sodium (Colace) 100 mg PO DAILY [facility] Last Admin: 10/11/17 08:30 Dose: 100 mg Gabapentin (Neurontin) 300 mg PO DAILY [facility] Last Admin: 10/11/17 08:29 Dose: 300 mg Pantoprazole Sodium (Protonix Ec Tab) 40 mg PO DAILY [facility] Last Admin: 10/11/17 08:30 Dose: 40 mg Primidone (Mysoline) 50 mg PO [facility] Last Admin: 10/11/17 21:01 Dose: 50 mg Results - Vital Signs Recent Vital Signs: Last Vital Signs Temp 98.1 F 10/11/17 20:00 Pulse 78 10/11/17 20:00 Resp 20 10/11/17 20:00 BP 117/69 10/11/17 20:00 Pulse Ox 99 10/11/17 20:00 - Labs Result Diagrams: 10/07/17 06:30 10/07/17 06:30
[2017-10-12] MEDS: Pantoprazole 40 mg EC Tab PO SCH (08:05)
--- NOTE | 2017-10-12 10:27 | CP.PCM.PN ---
Subjective - Date & Time of Evaluation Date of Evaluation: 10/12/17 Time of Evaluation: 10:27 - Subjective Subjective: Ms. Alvarenga was seen and examined at the bedside. She is alert, oriented, denies any headache, dizziness, blurred vision, diplopia. She claims of actively participating during therapy session but remains weak with her lower extremities especially in the morning. She is very pro-active with patient education especially being discharge. According to staff, she is very stiff during therapy session. She uses wheelchair to move around the unit. There was no untoward events overnight. Objective - Vital Signs/Intake and Output Vital Signs (last 24 hours): Temp Pulse Resp BP Pulse Ox 97.7 F 81 20 151/76 H 98 10/12/17 08:23 10/12/17 08:23 10/12/17 08:23 10/12/17 08:23 10/12/17 08:23 - Medications Medications: Current Medications Acetaminophen (Tylenol 325mg Tab) 650 mg PO Q6 PRN PRN Reason: Pain 1-10. Alendronate Sodium (Fosamax) 70 mg PO FRI@0630 [facility] Last Admin: 10/12/17 06:52 Dose: 70 mg Atorvastatin Calcium (Lipitor) 10 mg PO [facility] Last Admin: 10/11/17 21:01 Dose: 10 mg Carbidopa/Levodopa (Sinemet 10/100) 1 tab PO 0700,1200,1500 [facility] Docusate Sodium (Colace) 100 mg PO DAILY [facility] Last Admin: 10/12/17 08:05 Dose: 100 mg Gabapentin (Neurontin) 300 mg PO DAILY [facility] Last Admin: 10/12/17 08:06 Dose: 300 mg Pantoprazole Sodium (Protonix Ec Tab) 40 mg PO DAILY [facility] Last Admin: 10/12/17 08:05 Dose: 40 mg Primidone (Mysoline) 50 mg PO [facility] Last Admin: 10/11/17 21:01 Dose: 50 mg - Labs Labs: 10/07/17 06:30 10/07/17 06:30 - Constitutional Appears: No Acute Distress - Head Exam Head Exam: NORMAL INSPECTION - Eye Exam Pupil Exam: PERRL - Neurological Exam Neurological Exam: Alert, Awake, Oriented x3 Neuro motor strength exam: Left Upper Extremity: 4, Right Upper Extremity: 4, Left Lower Extremity: 3, Right Lower Extremity: 3 Additional comments: neurological unchanged from previous examination. Assessment and Plan (1) Parkinson disease Assessment & Plan: Continue all current medical, physical, and occupational therapies. Recommend to change times of Sinemet dosing such as 0700, 1200, and 1500, if not working until next week then will add Amantadine 100 mg PO BID, follow up with Dr. Klein as an outpatient, treat any electrolyte abnormalities. Status: Chronic
--- NOTE | 2017-10-12 12:38 | CP.PCM.PN ---
Subjective - Date & Time of Evaluation Date of Evaluation: 10/12/17 Time of Evaluation: 11:00 - Subjective Subjective: Patient seen and examined. Continue to complain of headache but refused to take Tylenol or other analgesic. Objective - Vital Signs/Intake and Output Vital Signs (last 24 hours): Temp Pulse Resp BP Pulse Ox 97.7 F 81 20 151/76 H 98 10/12/17 08:23 10/12/17 08:23 10/12/17 08:23 10/12/17 08:23 10/12/17 08:23 - Medications Medications: Current Medications Acetaminophen (Tylenol 325mg Tab) 650 mg PO Q6 PRN PRN Reason: Pain 1-10. Alendronate Sodium (Fosamax) 70 mg PO FRI@0630 [facility] Last Admin: 10/12/17 06:52 Dose: 70 mg Atorvastatin Calcium (Lipitor) 10 mg PO [facility] Last Admin: 10/11/17 21:01 Dose: 10 mg Carbidopa/Levodopa (Sinemet 10/100) 1 tab PO 0700,1200,1500 [facility] Last Admin: 10/12/17 11:54 Dose: 1 tab Docusate Sodium (Colace) 100 mg PO DAILY [facility] Last Admin: 10/12/17 08:05 Dose: 100 mg Gabapentin (Neurontin) 300 mg PO DAILY [facility] Last Admin: 10/12/17 08:06 Dose: 300 mg Pantoprazole Sodium (Protonix Ec Tab) 40 mg PO DAILY [facility] Last Admin: 10/12/17 08:05 Dose: 40 mg Primidone (Mysoline) 50 mg PO [facility] Last Admin: 10/11/17 21:01 Dose: 50 mg - Labs Labs: 10/07/17 06:30 10/07/17 06:30 - Constitutional Appears: No Acute Distress - Head Exam Head Exam: ATRAUMATIC - Eye Exam Eye Exam: absent: Scleral icterus - ENT Exam ENT Exam: Mucous Membranes Moist - Neck Exam Neck Exam: absent: Meningismus - Respiratory Exam Respiratory Exam: absent: Rales, Rhonchi, Wheezes, Respiratory Distress - Cardiovascular Exam Cardiovascular Exam: REGULAR RHYTHM, +S1, +S2 - GI/Abdominal Exam GI & Abdominal Exam: Soft. absent: Tenderness - Rectal Exam Rectal Exam: Deferred - Extremities Exam Extremities Exam: absent: Calf Tenderness, Pedal Edema - Back Exam Back Exam: NORMAL INSPECTION - Neurological Exam Neurological Exam: Alert, Oriented x3 - Psychiatric Exam Psychiatric exam: Normal Affect - Skin Skin Exam: Dry, Intact Assessment and Plan - Assessment and Plan (Free Text) Assessment: 72 yo female with history of Arthritis, DM2 with Peripheral Neuropathy and Parkinson's Disease was admitted at [facility] on 10/02/17 because of head trauma after a fall. She sustained laceration at the occipital region and subdural hematoma. On 10/06/17 she was transferred to [facility] and was admitted in TCU for continued management and therapy. 1. Subdural Hematoma as per Dr Cano, findings on imagings were more consistent with calcification than subdural hematoma neurosurgery consulted and declared that no surgery was necessary 2. Parkinson's Disease continue Sinemet continue PT/OT 3. Peripheral neuropathy secondary to diabetes continue Neurontin 4. DVT prophylaxis venodyne boots while in bed
[2017-10-13] MEDS: Pantoprazole 40 mg EC Tab PO SCH (08:47)
--- NOTE | 2017-10-13 19:23 | CP.PCM.PN ---
Subjective - Date & Time of Evaluation Date of Evaluation: 10/13/17 Time of Evaluation: 19:25 - Subjective Subjective: Patient in wheelchair not in distress in good mood, no CP, no SOB, no N/V. Still c/o weakness most in the lt side of the body. No new deficit as per review of the previous records. The case was discussed with the nurse and the family at bed side. Objective - Vital Signs/Intake and Output Vital Signs (last 24 hours): Temp Pulse Resp BP Pulse Ox 97.3 F L 92 H 20 127/70 98 10/13/17 07:45 10/13/17 07:45 10/13/17 07:45 10/13/17 07:45 10/13/17 07:45 - Medications Medications: Current Medications Acetaminophen (Tylenol 325mg Tab) 650 mg PO Q6 PRN PRN Reason: Pain 1-10. Alendronate Sodium (Fosamax) 70 mg PO FRI@0630 [facility] Last Admin: 10/12/17 06:52 Dose: 70 mg Atorvastatin Calcium (Lipitor) [address] [facility] Last Admin: 10/12/17 21:31 Dose: 10 mg Carbidopa/Levodopa (Sinemet 10/100) 1 tab PO 0700,1200,1500 [facility] Last Admin: 10/13/17 15:26 Dose: 1 tab Docusate Sodium (Colace) 100 mg PO DAILY [facility] Last Admin: 10/13/17 08:47 Dose: 100 mg Gabapentin (Neurontin) 300 mg PO DAILY [facility] Last Admin: 10/13/17 08:47 Dose: 300 mg Pantoprazole Sodium (Protonix Ec Tab) 40 mg PO DAILY [facility] Last Admin: 10/13/17 08:47 Dose: 40 mg Primidone (Mysoline) [address] [facility] Last Admin: 10/12/17 21:31 Dose: 50 mg - Labs Labs: 10/07/17 06:30 10/07/17 06:30 - Constitutional Appears: Non-toxic, Chronically Ill - Head Exam Head Exam: ATRAUMATIC, NORMAL INSPECTION, NORMOCEPHALIC - Eye Exam Eye Exam: Normal appearance - ENT Exam ENT Exam: Mucous Membranes Moist - Neck Exam Neck Exam: Full ROM - Respiratory Exam Respiratory Exam: Clear to Ausculation Bilateral, NORMAL BREATHING PATTERN - Cardiovascular Exam Cardiovascular Exam: REGULAR RHYTHM, +S1, +S2 - GI/Abdominal Exam GI & Abdominal Exam: Soft, Normal Bowel Sounds - Extremities Exam Extremities Exam: Normal Inspection - Neurological Exam Neurological Exam: Alert, Awake, CN II-XII Intact - Psychiatric Exam Psychiatric exam: Normal Mood - Skin Skin Exam: Normal Color Assessment and Plan (1) Fall Status: Acute (2) Peripheral neuropathy Status: Chronic (3) Subdural hemorrhage Status: Chronic (4) Parkinson disease Status: Chronic (5) Peripheral neuropathy Status: Chronic - Assessment and Plan (Free Text) Plan: Continue present rx
[2017-10-14] MEDS: Pantoprazole 40 mg EC Tab PO SCH (08:41)
[2017-10-15] MEDS: Pantoprazole 40 mg EC Tab PO SCH (08:51)
--- NOTE | 2017-10-15 10:11 | CP.PCM.PN ---
Subjective - Date & Time of Evaluation Date of Evaluation: 10/15/17 Time of Evaluation: 10:10 - Subjective Subjective: Ms. Alvarenga was seen and examined at the bedside. She is alert, oriented, denies any headache, dizziness, blurred vision, diplopia. She claims of actively participating during therapy session but remains weak with her lower extremities especially in the morning. She is very pro-active with patient education especially being discharge. She is able to ambulate with staff using rolling walker. There was no untoward events overnight. Objective - Vital Signs/Intake and Output Vital Signs (last 24 hours): Temp Pulse Resp BP Pulse Ox 96.8 F L 91 H 18 132/70 98 10/15/17 09:06 10/15/17 09:06 10/15/17 09:06 10/15/17 09:06 10/15/17 09:06 - Medications Medications: Current Medications Acetaminophen (Tylenol 325mg Tab) 650 mg PO Q6 PRN PRN Reason: Pain 1-10. Alendronate Sodium (Fosamax) 70 mg PO FRI@0630 [facility] Last Admin: 10/12/17 06:52 Dose: 70 mg Atorvastatin Calcium (Lipitor) [address] [facility] Last Admin: 10/14/17 21:05 Dose: 10 mg Carbidopa/Levodopa (Sinemet 10/100) 1 tab PO 0700,1200,1500 [facility] Last Admin: 10/15/17 07:28 Dose: 1 tab Docusate Sodium (Colace) 100 mg PO DAILY [facility] Last Admin: 10/15/17 08:50 Dose: 100 mg Gabapentin (Neurontin) 300 mg PO DAILY [facility] Last Admin: 10/15/17 08:50 Dose: 300 mg Pantoprazole Sodium (Protonix Ec Tab) 40 mg PO DAILY [facility] Last Admin: 10/15/17 08:51 Dose: 40 mg Primidone (Mysoline) 50 mg [address] [facility] Last Admin: 10/14/17 21:05 Dose: 50 mg - Labs Labs: 10/07/17 06:30 10/07/17 06:30 - Constitutional Appears: No Acute Distress - Head Exam Head Exam: NORMAL INSPECTION - Eye Exam Pupil Exam: PERRL - Neurological Exam Neurological Exam: Alert, Awake Neuro motor strength exam: Left Upper Extremity: 4, Right Upper Extremity: 4, Left Lower Extremity: 3, Right Lower Extremity: 3 Additional comments: neurological unchanged from previous examination. Assessment and Plan (1) Parkinson disease Assessment & Plan: Continue all current medical, physical, and occupational therapies. Recommend monitor muscle stiffness if remains very stiff inspite Sinemet dose timing dose then will add Amantadine 100 mg PO BID, follow up with Dr. Klein as an outpatient, treat any electrolyte abnormalities. Status: Chronic
[2017-10-15] MEDS ORDERED: Artificial Tears Opht Soln OU PRN (17:47)
--- NOTE | 2017-10-16 08:19 | CP.PCM.PN ---
Subjective - Date & Time of Evaluation Date of Evaluation: 10/15/17 Time of Evaluation: 17:30 - Subjective Subjective: No new c/o still weak in the lower limbs Objective - Vital Signs/Intake and Output Vital Signs (last 24 hours): Temp Pulse Resp BP Pulse Ox 97.9 F 76 20 116/64 99 10/15/17 20:03 10/15/17 20:03 10/15/17 20:03 10/15/17 20:03 10/15/17 20:03 - Medications Medications: Current Medications Acetaminophen (Tylenol 325mg Tab) 650 mg PO Q6 PRN PRN Reason: Pain 1-10. Alendronate Sodium (Fosamax) 70 mg PO FRI@0630 [facility] Last Admin: 10/12/17 06:52 Dose: 70 mg Artificial Tears (Artificial Tears) 1 drop OU QID PRN PRN Reason: Dry eyes Atorvastatin Calcium (Lipitor) 10 mg PO [facility] Last Admin: 10/15/17 21:01 Dose: 10 mg Carbidopa/Levodopa (Sinemet 10/100) 1 tab PO 0700,1200,1500 [facility] Last Admin: 10/16/17 06:46 Dose: 1 tab Docusate Sodium (Colace) 100 mg PO DAILY [facility] Last Admin: 10/15/17 08:50 Dose: 100 mg Gabapentin (Neurontin) 300 mg PO DAILY [facility] Last Admin: 10/15/17 08:50 Dose: 300 mg Pantoprazole Sodium (Protonix Ec Tab) 40 mg PO DAILY [facility] Last Admin: 10/15/17 08:51 Dose: 40 mg Primidone (Mysoline) 50 mg PO [facility] Last Admin: 10/15/17 21:01 Dose: 50 mg - Labs Labs: 10/07/17 06:30 10/07/17 06:30 - Constitutional Appears: Chronically Ill - Head Exam Head Exam: ATRAUMATIC, NORMAL INSPECTION, NORMOCEPHALIC - Eye Exam Eye Exam: Normal appearance - ENT Exam ENT Exam: Mucous Membranes Moist - Neck Exam Neck Exam: Full ROM - Respiratory Exam Respiratory Exam: Clear to Ausculation Bilateral - Cardiovascular Exam Cardiovascular Exam: REGULAR RHYTHM, +S1, +S2 - GI/Abdominal Exam GI & Abdominal Exam: Soft - Extremities Exam Extremities Exam: Normal Inspection - Neurological Exam Neurological Exam: Alert, Awake, CN II-XII Intact Assessment and Plan (1) Fall Status: Acute (2) Peripheral neuropathy Status: Chronic (3) Subdural hemorrhage Status: Chronic (4) Parkinson disease Status: Chronic (5) Peripheral neuropathy Status: Chronic - Assessment and Plan (Free Text) Plan: continue present rx
[2017-10-16] MEDS: Pantoprazole 40 mg EC Tab PO SCH (08:20)
--- NOTE | 2017-10-16 15:57 | CP.PCM.PN ---
Subjective - Date & Time of Evaluation Date of Evaluation: 10/16/17 Time of Evaluation: 16:27 - Subjective Subjective: No new c/o Objective - Vital Signs/Intake and Output Vital Signs (last 24 hours): Temp Pulse Resp BP Pulse Ox 98.1 F 83 18 133/72 98 10/16/17 08:37 10/16/17 08:37 10/16/17 08:37 10/16/17 08:37 10/16/17 08:37 - Medications Medications: Current Medications Acetaminophen (Tylenol 325mg Tab) 650 mg PO Q6 PRN PRN Reason: Pain 1-10. Alendronate Sodium (Fosamax) 70 mg PO FRI@0630 [facility] Last Admin: 10/12/17 06:52 Dose: 70 mg Artificial Tears (Artificial Tears) 1 drop OU QID PRN PRN Reason: Dry eyes Last Admin: 10/16/17 08:21 Dose: 1 drop Atorvastatin Calcium (Lipitor) 10 mg PO [facility] Last Admin: 10/15/17 21:01 Dose: 10 mg Carbidopa/Levodopa (Sinemet 10/100) 1 tab PO 0700,1200,1500 [facility] Last Admin: 10/16/17 12:21 Dose: 1 tab Docusate Sodium (Colace) 100 mg PO DAILY [facility] Last Admin: 10/16/17 08:20 Dose: 100 mg Gabapentin (Neurontin) 300 mg PO DAILY [facility] Last Admin: 10/16/17 08:20 Dose: 300 mg Pantoprazole Sodium (Protonix Ec Tab) 40 mg PO DAILY [facility] Last Admin: 10/16/17 08:20 Dose: 40 mg Primidone (Mysoline) 50 mg PO [facility] Last Admin: 10/15/17 21:01 Dose: 50 mg - Labs Labs: 10/07/17 06:30 10/07/17 06:30 - Constitutional Appears: Chronically Ill - Head Exam Head Exam: ATRAUMATIC, NORMAL INSPECTION, NORMOCEPHALIC - Eye Exam Eye Exam: Normal appearance - ENT Exam ENT Exam: Mucous Membranes Moist - Neck Exam Neck Exam: Full ROM - Respiratory Exam Respiratory Exam: Clear to Ausculation Bilateral - Cardiovascular Exam Cardiovascular Exam: REGULAR RHYTHM, +S1, +S2 - GI/Abdominal Exam GI & Abdominal Exam: Normal Bowel Sounds - Extremities Exam Extremities Exam: Normal Inspection - Neurological Exam Neurological Exam: Alert, Awake, CN II-XII Intact - Psychiatric Exam Psychiatric exam: Normal Affect - Skin Skin Exam: Normal Color Assessment and Plan (1) Fall Status: Acute (2) Peripheral neuropathy Status: Chronic (3) Subdural hemorrhage Status: Chronic (4) Parkinson disease Status: Chronic (5) Peripheral neuropathy Status: Chronic
--- NOTE | 2017-10-16 21:06 | PSY.TMCNF ---
Nursing - Vital Signs Pain: 0 - Precautions: Precautions: Fall Prevention - Medications/Other Issues Comment: Still complains of stiffness only in the morning. Tolerating new Sinemet regimen. - Consults Comment: Dr. Cano, Dr. Johnson, Dr. Valladares - Skin Incision Site: right posterior (head) Dressing Status: Clean, Dry, Intact Incision: Healing Well, Well Approximated Incision Line Treatment: Open to air. Sutures were already removed 10/10/2017 - Toileting Toileting: Supervision - Bladder Management Bladder Pattern: Normal Voiding Method: Toilet Bladder Management: Modified Independent Frequency of Accidents: 0 - Bowel Management Bowel Pattern: Normal Bowel Management: Modified Independent Frequency of Accidents: 0 - Transfers Transfers: Minimal Assistance - ADL's ADL's: Minimal Assistance - Pain Management Comments: on tylenol for pain gabapentin for neuropathy - Patient/Family Teaching Comments: Safety precautions and Medications - Goals/Time Frame Comments: Per multidisciplinary care plan and goals - Provider Provider: Riana MONROEN RN CRRN Physical Therapy - Bed Mobility Bed Mobility: Minimal Assistance - Transfers Wheelchair to Mat: Minimal Assistance Sit to Stand: Verbal Cues, Contact Guard - Ambulation Level of Assistance: Verbal Cues, Minimal Assistance Distance (ft.): 90 Assistive Devices: Rolling Walker - Stair Negotiation Stairs: Level of Assistance: Minimal Assistance Number of Stairs: 3 Handrails: Bilateral - Standing Balance Static Stand: Supervision Dynamic Stand: Minimal Assistance - Pain Pain (assessed during therapy session): 0 - Insight/Carryover Insight/Carryover: Good - Patient/Family Education Comment: techniques, strategies, and exercises to reduce functional symptoms related to PD. increased safety awareness - Assessment/Plan Assessment: Pt participating in PT tx session focusing on BLE strengthening exercises, balance and endurance activities, and functional mobility training. Re-assessed TUG and 5 time to sit to stand tests (see results above). Pt requires min A for ambulation with RW 2/2 shuffling gait pattern and freezing at times. Pt will continue to benefit from skilled PT intervention to address deficits, reduce fall risk, and maximize functional independence. - Goals Timeframe: 2 weeks Goals: mod I for bed mobility. mod I for sit < > stand and stand pivot transfers. Pt will ambulate 150 ft with RW and CGA - Provider Therapist: M License Number: [id number] Occupational Therapy - Arousal/Attention/Orientation Patient Orientation: Person, Place, Time, Appropriate to Age, Appropriate to Situation - ADL/IADL Self Feeding: Set-up Help Grooming: Set-up Help Bathing-Upper Extremity: Verbal Cues, Set-up Help, Minimal Assistance Bathing-Lower Extremity: Verbal Cues, Set-up Help, Minimal Assistance Dressing-Upper Extremity: Set-up Help, Contact Guard, Minimal Assistance Dressing-Lower Extremity: Verbal Cues, Set-up Help, Contact Guard, Minimal Assistance - Sitting Balance Static Sitting: Independent without upper extremity support Dynamic Sitting: Requires supervision Comment: setaed unsupported - Transfers Wheelchair to Bed Transfers: Verbal Cues, Set-up Help, Contact Guard Toilet Transfers: Verbal Cues, Set-up Help, Contact Guard Comment: shower transfers: min assist and verbal cues - Wheelchair Management Level of Assistance: Verbal Cues, Set-up Help, Contact Guard, Minimal Assistance Distance (ft.): 75 - Upper Extremity Status Right Upper Extremity Comment: AROM WFLs Left Upper Extremity Comment: AROM 100 degrees. PROM WFLs - Pain Pain (assessed during therapy session): 0 - Insight/Carryover Insight/Carryover: Good - Patient/Family Education Comment: techniques, strategies, and exercises to reduce functional symptoms related to PD. increased safety awareness - Assessment/Plan Assessment: Pt participating in PT tx session focusing on BLE strengthening exercises, balance and endurance activities, and functional mobility training. Re-assessed TUG and 5 time to sit to stand tests (see results above). Pt requires min A for ambulation with RW 2/2 shuffling gait pattern and freezing at times. Pt will continue to benefit from skilled PT intervention to address deficits, reduce fall risk, and maximize functional independence. - Goals Timeframe: 2 weeks Goals: mod I for bed mobility. mod I for sit < > stand and stand pivot transfers. Pt will ambulate 150 ft with RW and CGA - Provider Therapist: India Brown OTR/[facility] - Plan Assessment: Pt participating in PT tx session focusing on BLE strengthening exercises, balance and endurance activities, and functional mobility training. Re-assessed TUG and 5 time to sit to stand tests (see results above). Pt requires min A for ambulation with RW 2/2 shuffling gait pattern and freezing at times. Pt will continue to benefit from skilled PT intervention to address deficits, reduce fall risk, and maximize functional independence. Recreational Therapy - Socialization Level of Socialization: Responds freely, but does not initiate, Requires 1:1 guidance to respond - Assessment Assessment/Plan: Pt participating in PT tx session focusing on BLE strengthening exercises, balance and endurance activities, and functional mobility training. Re-assessed TUG and 5 time to sit to stand tests (see results above). Pt requires min A for ambulation with RW 2/2 shuffling gait pattern and freezing at times. Pt will continue to benefit from skilled PT intervention to address deficits, reduce fall risk, and maximize functional independence. - Provider Therapist: Caroline Neri Nutrition - Current Diet Current Diet/ Supplement/ Feedings: Heart healthy advanced bite size thin liquids - Appetite Percent Meal Consumed: 50-74% - Comments Comments: Safety precautions and Medications - Assessment/Goals/Time Frame Assessment/Goals/Time Frame: Still complains of stiffness only in the morning. Tolerating new Sinemet regimen. - Provider Provider: Paola Kunz RD Case Management - Psychosocial Assessment Support Systems: Melvi Helton (daughter)- [phone]. Veronique Lopes ( daughter in law)- [phone] Psychological Interventions/Needs: Patient is AAOx3 and able to verbalize needs. Patient is pleasant and motivated for therapy Discharge Concerns: Patient lives alone, presents with shuffling gait and rigidity Patient/Family Meeting: CM met with patient and rehab team Intervention/Goal/Outcome:: 1. Goal: 24 hour supervision due to unsteadiness and progressive nature of PD. 2. Plan: Home with [facility] referral. 3. caregiver training/education arranged for 10/17 at 3:30pm with daughter and daughter in law , CM to further discuss recommendations and plan at that time. 4. DME needs- RW , commode to be ordered. 5. f/u appts. 6. Tentative discharge date: 10/22. 7. continued [place] [facility] auth, LAD: 10/17 - Discharge Plan Discharge Plan: Home with services Home Services: [facility] - Provider Provider: RAYNA Lea, [employer] License Number: [id number] Rehabilitation Plan - Treatment Plan Treatment Plan: Physical Therapy, Occupational Therapy, Dietary, Patient/Family Education - Recommendation Recommendation: Physical Therapy, Occupational Therapy, Dietary, Patient/Family Education - Discharge Plan Discharge to: Home (plan for Dc home covering For Dr johnson)
[2017-10-17] MEDS: Pantoprazole 40 mg EC Tab PO SCH (08:34)
--- NOTE | 2017-10-17 11:36 | CP.PCM.PN ---
Subjective - Date & Time of Evaluation Date of Evaluation: 10/16/17 Time of Evaluation: 20:20 - Subjective Subjective: no acute complaints Objective - Vital Signs/Intake and Output Vital Signs (last 24 hours): Temp Pulse Resp BP Pulse Ox 98.1 F 92 H 21 141/73 96 10/17/17 08:12 10/17/17 08:12 10/17/17 08:12 10/17/17 08:12 10/17/17 08:12 - Medications Medications: Current Medications Acetaminophen (Tylenol 325mg Tab) 650 mg PO Q6 PRN PRN Reason: Pain 1-10. Alendronate Sodium (Fosamax) 70 mg PO FRI@0630 [facility] Last Admin: 10/12/17 06:52 Dose: 70 mg Artificial Tears (Artificial Tears) 1 drop OU QID PRN PRN Reason: Dry eyes Last Admin: 10/16/17 08:21 Dose: 1 drop Atorvastatin Calcium (Lipitor) 10 mg PO [facility] Last Admin: 10/16/17 21:04 Dose: 10 mg Carbidopa/Levodopa (Sinemet 10/100) 1 tab PO 0700,1200,1500 [facility] Last Admin: 10/17/17 07:14 Dose: 1 tab Docusate Sodium (Colace) 100 mg PO DAILY [facility] Last Admin: 10/17/17 08:33 Dose: 100 mg Gabapentin (Neurontin) 300 mg PO DAILY [facility] Last Admin: 10/17/17 08:33 Dose: 300 mg Pantoprazole Sodium (Protonix Ec Tab) 40 mg PO DAILY [facility] Last Admin: 10/17/17 08:34 Dose: 40 mg Primidone (Mysoline) 50 mg PO [facility] Last Admin: 10/16/17 21:04 Dose: 50 mg - Labs Labs: 10/07/17 06:30 10/07/17 06:30 - Head Exam Head Exam: ATRAUMATIC, NORMAL INSPECTION, NORMOCEPHALIC - Eye Exam Eye Exam: EOMI, Normal appearance, PERRL Pupil Exam: NORMAL ACCOMODATION - ENT Exam ENT Exam: Mucous Membranes Moist, Normal Exam - Neck Exam Neck Exam: Normal Inspection - Respiratory Exam Respiratory Exam: Clear to Ausculation Bilateral, NORMAL BREATHING PATTERN - Cardiovascular Exam Cardiovascular Exam: REGULAR RHYTHM - GI/Abdominal Exam GI & Abdominal Exam: Soft, Normal Bowel Sounds - Rectal Exam Rectal Exam: NORMAL INSPECTION - Exam External exam: NORMAL EXTERNAL EXAM - Extremities Exam Extremities Exam: Normal Capillary Refill - Back Exam Back Exam: NORMAL INSPECTION - Neurological Exam Neurological Exam: Alert, Awake Neuro motor strength exam: Left Upper Extremity: 3, Right Upper Extremity: 3, Left Lower Extremity: 3, Right Lower Extremity: 3 - Psychiatric Exam Psychiatric exam: Normal Affect, Normal Mood - Skin Skin Exam: Normal Color Assessment and Plan (1) Abdominal pain Status: Acute (2) Abdominal pain Status: Acute (3) CVA (cerebral vascular accident) Assessment & Plan: covering for Dr randolph for Dc 17 pt ot rec therapy Status: Acute (4) Chest pain Status: Acute (5) Costochondritis Status: Acute (6) D-dimer, elevated Status: Acute (7) Diverticula of colon Status: Acute (8) Fall Status: Acute
--- NOTE | 2017-10-17 11:41 | CP.PCM.PN ---
Subjective - Date & Time of Evaluation Date of Evaluation: 10/13/17 Time of Evaluation: 12:10 - Subjective Subjective: no acute complaints at present Objective - Vital Signs/Intake and Output Vital Signs (last 24 hours): Temp Pulse Resp BP Pulse Ox 98.1 F 92 H 21 141/73 96 10/17/17 08:12 10/17/17 08:12 10/17/17 08:12 10/17/17 08:12 10/17/17 08:12 - Medications Medications: Current Medications Acetaminophen (Tylenol 325mg Tab) 650 mg PO Q6 PRN PRN Reason: Pain 1-10. Alendronate Sodium (Fosamax) 70 mg PO FRI@0630 [facility] Last Admin: 10/12/17 06:52 Dose: 70 mg Artificial Tears (Artificial Tears) 1 drop OU QID PRN PRN Reason: Dry eyes Last Admin: 10/16/17 08:21 Dose: 1 drop Atorvastatin Calcium (Lipitor) 10 mg PO [facility] Last Admin: 10/16/17 21:04 Dose: 10 mg Carbidopa/Levodopa (Sinemet 10/100) 1 tab PO 0700,1200,1500 [facility] Last Admin: 10/17/17 07:14 Dose: 1 tab Docusate Sodium (Colace) 100 mg PO DAILY [facility] Last Admin: 10/17/17 08:33 Dose: 100 mg Gabapentin (Neurontin) 300 mg PO DAILY [facility] Last Admin: 10/17/17 08:33 Dose: 300 mg Pantoprazole Sodium (Protonix Ec Tab) 40 mg PO DAILY [facility] Last Admin: 10/17/17 08:34 Dose: 40 mg Primidone (Mysoline) 50 mg PO [facility] Last Admin: 10/16/17 21:04 Dose: 50 mg - Labs Labs: 10/07/17 06:30 10/07/17 06:30 - Head Exam Head Exam: ATRAUMATIC, NORMAL INSPECTION, NORMOCEPHALIC - Eye Exam Eye Exam: EOMI, Normal appearance, PERRL Pupil Exam: NORMAL ACCOMODATION - ENT Exam ENT Exam: Mucous Membranes Moist, Normal Exam - Neck Exam Neck Exam: Normal Inspection - Respiratory Exam Respiratory Exam: Clear to Ausculation Bilateral, NORMAL BREATHING PATTERN - Cardiovascular Exam Cardiovascular Exam: REGULAR RHYTHM - GI/Abdominal Exam GI & Abdominal Exam: Soft, Normal Bowel Sounds - Rectal Exam Rectal Exam: NORMAL INSPECTION - Exam External exam: NORMAL EXTERNAL EXAM - Extremities Exam Extremities Exam: Full ROM, Normal Capillary Refill, Normal Inspection - Back Exam Back Exam: NORMAL INSPECTION - Neurological Exam Neurological Exam: Alert, Awake Neuro motor strength exam: Left Upper Extremity: 3, Right Upper Extremity: 3, Left Lower Extremity: 3, Right Lower Extremity: 3 - Psychiatric Exam Psychiatric exam: Normal Affect, Normal Mood - Skin Skin Exam: Dry, Intact Assessment and Plan (1) Abdominal pain Status: Acute (2) Abdominal pain Status: Acute (3) CVA (cerebral vascular accident) Assessment & Plan: covering for Strell pt, ot rec therapy Dc planning Status: Acute (4) Chest pain Status: Acute (5) Costochondritis Status: Acute (6) D-dimer, elevated Status: Acute (7) Diverticula of colon Status: Acute (8) Fall Status: Acute
--- NOTE | 2017-10-17 12:43 | CP.PCM.PN ---
Subjective - Date & Time of Evaluation Date of Evaluation: 10/17/17 Time of Evaluation: 12:43 - Subjective Subjective: Patient comfortable in good spirit no new deficit. Continue present rx. Objective - Vital Signs/Intake and Output Vital Signs (last 24 hours): Temp Pulse Resp BP Pulse Ox 98.1 F 92 H 21 141/73 96 10/17/17 08:12 10/17/17 08:12 10/17/17 08:12 10/17/17 08:12 10/17/17 08:12 - Medications Medications: Current Medications Acetaminophen (Tylenol 325mg Tab) 650 mg PO Q6 PRN PRN Reason: Pain 1-10. Alendronate Sodium (Fosamax) 70 mg PO FRI@0630 [facility] Last Admin: 10/12/17 06:52 Dose: 70 mg Artificial Tears (Artificial Tears) 1 drop OU QID PRN PRN Reason: Dry eyes Last Admin: 10/16/17 08:21 Dose: 1 drop Atorvastatin Calcium (Lipitor) 10 mg PO [facility] Last Admin: 10/16/17 21:04 Dose: 10 mg Carbidopa/Levodopa (Sinemet 10/100) 1 tab PO 0700,1200,1500 [facility] Last Admin: 10/17/17 07:14 Dose: 1 tab Docusate Sodium (Colace) 100 mg PO DAILY [facility] Last Admin: 10/17/17 08:33 Dose: 100 mg Gabapentin (Neurontin) 300 mg PO DAILY [facility] Last Admin: 10/17/17 08:33 Dose: 300 mg Pantoprazole Sodium (Protonix Ec Tab) 40 mg PO DAILY [facility] Last Admin: 10/17/17 08:34 Dose: 40 mg Primidone (Mysoline) 50 mg PO [facility] Last Admin: 10/16/17 21:04 Dose: 50 mg - Labs Labs: 10/07/17 06:30 10/07/17 06:30 - Constitutional Appears: Chronically Ill - Head Exam Head Exam: ATRAUMATIC, NORMAL INSPECTION, NORMOCEPHALIC - Eye Exam Eye Exam: Normal appearance - ENT Exam ENT Exam: Mucous Membranes Moist - Respiratory Exam Respiratory Exam: Clear to Ausculation Bilateral - Cardiovascular Exam Cardiovascular Exam: REGULAR RHYTHM, +S1, +S2 - GI/Abdominal Exam GI & Abdominal Exam: Soft, Normal Bowel Sounds - Extremities Exam Extremities Exam: Normal Inspection - Neurological Exam Neurological Exam: Alert, Awake, Oriented x3 - Psychiatric Exam Psychiatric exam: Normal Affect - Skin Skin Exam: Normal Color Assessment and Plan (1) Fall Status: Acute (2) Peripheral neuropathy Status: Chronic (3) Subdural hemorrhage Status: Chronic (4) Parkinson disease Status: Chronic (5) Peripheral neuropathy Status: Chronic
[2017-10-17 14:18] LABS: BASO # 0.1 K/uL (0.0-0.2); BASO % 0.5 % (0.0-2.0); EOS % 0.4 % (0.0-4.0); HEMOGLOBIN 12.1 g/dL (12.0-16.0); LYMPH # 1.6 K/uL (1.0-4.3); LYMPH % 13.2 % (20.0-40.0); MEAN CELL VOLUME 94.6 fl (81.0-99.0); MEAN CORPUSCULAR HEMOGLOBIN 32.3 pg (27.0-31.0); MEAN CORPUSCULAR HGB CONC 34.2 g/dL (33.0-37.0); MONO # 0.9 K/uL (0.0-0.8); MONO % 7.4 % (0.0-10.0); NEUT # 9.6 K/uL (1.8-7.0); NEUT % 78.5 % (50.0-75.0); NRBC % 0.1 % (0.0-0.0); RBC 3.74 Mil/uL (3.80-5.20); RED CELL DISTRIBUTION WIDTH 12.7 % (11.5-14.5); WHITE BLOOD COUNT 12.3 K/uL (4.8-10.8)
[2017-10-17 14:30] LABS: CALCIUM 9.5 mg/dL (8.4-10.2)
[2017-10-17 17:15] LABS: SQUAMOUS EPITHIAL 1 /hpf (0-5); URINE BILIRUBIN NEGATIVE (NEGATIVE); URINE BLOOD NEGATIVE (NEGATIVE); URINE CLARITY CLOUDY (Clear); URINE COLOR YELLOW (YELLOW); URINE GLUCOSE (UA) NEG (Normal); URINE LEUKOCYTE ESTERASE SMALL Leu/uL (Negative); URINE PROTEIN NEGATIVE (NEGATIVE); URINE UROBILINOGEN 0.2-1.0 mg/dL (0.2-1.0)
--- NOTE | 2017-10-17 17:18 | CP.PCM.PN ---
Subjective - Date & Time of Evaluation Date of Evaluation: 10/17/17 Time of Evaluation: 17:17 - Subjective Subjective: Patient seen in the room motivated and happy with progress some constipation but does not want any further change to bowel regimen Objective - Vital Signs/Intake and Output Vital Signs (last 24 hours): Temp Pulse Resp BP Pulse Ox 98.1 F 92 H 21 141/73 96 10/17/17 08:12 10/17/17 08:12 10/17/17 08:12 10/17/17 08:12 10/17/17 08:12 - Medications Medications: Current Medications Acetaminophen (Tylenol 325mg Tab) 650 mg PO Q6 PRN PRN Reason: Pain 1-10. Alendronate Sodium (Fosamax) 70 mg PO FRI@0630 [facility] Last Admin: 10/12/17 06:52 Dose: 70 mg Artificial Tears (Artificial Tears) 1 drop OU QID PRN PRN Reason: Dry eyes Last Admin: 10/16/17 08:21 Dose: 1 drop Atorvastatin Calcium (Lipitor) 10 mg PO [facility] Last Admin: 10/16/17 21:04 Dose: 10 mg Carbidopa/Levodopa (Sinemet 10/100) 1 tab PO 0700,1200,1500 [facility] Last Admin: 10/17/17 15:14 Dose: 1 tab Docusate Sodium (Colace) 100 mg PO DAILY [facility] Last Admin: 10/17/17 08:33 Dose: 100 mg Gabapentin (Neurontin) 300 mg PO DAILY [facility] Last Admin: 10/17/17 08:33 Dose: 300 mg Pantoprazole Sodium (Protonix Ec Tab) 40 mg PO DAILY [facility] Last Admin: 10/17/17 08:34 Dose: 40 mg Primidone (Mysoline) 50 mg PO [facility] Last Admin: 10/16/17 21:04 Dose: 50 mg - Labs Labs: 10/17/17 13:19 10/17/17 13:19
[2017-10-18] MEDS: Pantoprazole 40 mg EC Tab PO SCH (08:26)
--- NOTE | 2017-10-18 13:18 | CP.PCM.PN ---
Subjective - Date & Time of Evaluation Date of Evaluation: 10/18/17 Time of Evaluation: 13:18 - Subjective Subjective: No new changes comfortable Objective - Vital Signs/Intake and Output Vital Signs (last 24 hours): Temp Pulse Resp BP Pulse Ox 97.3 F L 81 18 129/72 100 10/18/17 07:34 10/18/17 07:34 10/18/17 07:34 10/18/17 07:34 10/18/17 07:34 - Medications Medications: Current Medications Acetaminophen (Tylenol 325mg Tab) 650 mg PO Q6 PRN PRN Reason: Pain 1-10. Alendronate Sodium (Fosamax) 70 mg PO FRI@0630 [facility] Last Admin: 10/12/17 06:52 Dose: 70 mg Artificial Tears (Artificial Tears) 1 drop OU QID PRN PRN Reason: Dry eyes Last Admin: 10/16/17 08:21 Dose: 1 drop Atorvastatin Calcium (Lipitor) 10 mg PO [facility] Last Admin: 10/17/17 21:01 Dose: 10 mg Carbidopa/Levodopa (Sinemet 10/100) 1 tab PO 0700,1200,1500 [facility] Last Admin: 10/18/17 12:21 Dose: 1 tab Ciprofloxacin (Cipro) 250 mg PO Q12 [facility] PRN Reason: Protocol Last Admin: 10/18/17 08:26 Dose: 250 mg Docusate Sodium (Colace) 100 mg PO DAILY [facility] Last Admin: 10/18/17 08:26 Dose: 100 mg Gabapentin (Neurontin) 300 mg PO DAILY [facility] Last Admin: 10/18/17 08:26 Dose: 300 mg Pantoprazole Sodium (Protonix Ec Tab) 40 mg PO DAILY [facility] Last Admin: 10/18/17 08:26 Dose: 40 mg Primidone (Mysoline) 50 mg PO [facility] Last Admin: 10/17/17 21:01 Dose: 50 mg - Labs Labs: 10/17/17 13:19 10/17/17 13:19 - Constitutional Appears: Chronically Ill - Head Exam Head Exam: ATRAUMATIC, NORMAL INSPECTION, NORMOCEPHALIC - Eye Exam Eye Exam: Normal appearance - ENT Exam ENT Exam: Mucous Membranes Moist - Neck Exam Neck Exam: Full ROM - Respiratory Exam Respiratory Exam: Clear to Ausculation Bilateral - Cardiovascular Exam Cardiovascular Exam: REGULAR RHYTHM, +S1, +S2 - GI/Abdominal Exam GI & Abdominal Exam: Soft, Normal Bowel Sounds - Extremities Exam Extremities Exam: Normal Inspection - Neurological Exam Neurological Exam: Alert, Awake, CN II-XII Intact, Oriented x3 - Psychiatric Exam Psychiatric exam: Normal Affect - Skin Skin Exam: Normal Color Assessment and Plan (1) Fall Status: Acute (2) Peripheral neuropathy Status: Chronic (3) Subdural hemorrhage Status: Chronic (4) Parkinson disease Status: Chronic (5) Peripheral neuropathy Status: Chronic
[2017-10-19] MEDS: ALENDRONATE 70 MG TAB PO SCH (06:40)
--- NOTE | 2017-10-19 08:00 | CP.PCM.CON ---
History of Present Illness - History of Present Illness History of Present Illness: Pt seen for supportive therapy 7:40-7:57. pt spoke of her plan/desire to return home over the next number of days. Pt spoke of progress, increased strength, and positive support of staff. Pt adjusting increasingly well, depression denied, anxiety denied, pt increasingly optimistic. Past Patient History - Infectious Disease Hx of Infectious Diseases: None - Past Medical History & Family History Past Medical History?: Yes - Past Social History Smoking Status: Never Smoked Chewing Tobacco Use: No Cigar Use: No Alcohol: None Drugs: Denies Home Situation {Lives}: Alone - CARDIAC Hx Hypercholesterolemia: Yes - PULMONARY Hx Respiratory Disorders: No - NEUROLOGICAL Hx Parkinson's Disease: Yes Hx Transient Ischemic Attacks (TIA): Yes - HEENT Hx HEENT Problems: Yes Hx Cataracts: Yes (HX OF AILEEN. SURGERY) - RENAL Hx Chronic Kidney Disease: No - ENDOCRINE/METABOLIC Hx Diabetes Mellitus Type 2: Yes - HEMATOLOGICAL/ONCOLOGICAL Hx Human Immunodeficiency Virus (HIV): No - INTEGUMENTARY Hx Dermatological Problems: No - MUSCULOSKELETAL/RHEUMATOLOGICAL Hx Arthritis: Yes - GASTROINTESTINAL Hx Diverticulitis: Yes Hx Gall Bladder Disease: No Hx Gastritis: No Hx Pancreatitis: No - GENITOURINARY/GYNECOLOGICAL Hx Genitourinary Disorders: No - PSYCHIATRIC Hx Anxiety: Yes Hx Substance Use: No - SURGICAL HISTORY Hx Appendectomy: Yes Hx Cholecystectomy: Yes - ANESTHESIA Hx Anesthesia: Yes Hx Anesthesia Reactions: Yes (delayed awakening) Hx Malignant Hyperthermia: No Meds Allergies/Adverse Reactions: Allergies Allergy/AdvReac Type Severity Reaction Status Date / Time clarithromycin Allergy NAUSEA Verified 10/02/17 11:08 iodine Allergy SWELLING Verified 10/02/17 11:08 - Medications Medications: Current Medications Acetaminophen (Tylenol 325mg Tab) 650 mg PO Q6 PRN PRN Reason: Pain 1-10. Alendronate Sodium (Fosamax) 70 mg PO FRI@0630 [facility] Last Admin: 10/19/17 06:40 Dose: 70 mg Artificial Tears (Artificial Tears) 1 drop OU QID PRN PRN Reason: Dry eyes Last Admin: 10/16/17 08:21 Dose: 1 drop Atorvastatin Calcium (Lipitor) 10 mg PO HS [facility] Last Admin: 10/18/17 21:02 Dose: 10 mg Carbidopa/Levodopa (Sinemet 10/100) 1 tab PO 0700,1200,1500 [facility] Last Admin: 10/19/17 06:40 Dose: 1 tab Ciprofloxacin (Cipro) 250 mg PO Q12 [facility] PRN Reason: Protocol Last Admin: 10/18/17 21:02 Dose: 250 mg Docusate Sodium (Colace) 100 mg PO DAILY [facility] Last Admin: 10/18/17 08:26 Dose: 100 mg Gabapentin (Neurontin) 300 mg PO DAILY [facility] Last Admin: 10/18/17 08:26 Dose: 300 mg Pantoprazole Sodium (Protonix Ec Tab) 40 mg PO DAILY [facility] Last Admin: 10/18/17 08:26 Dose: 40 mg Primidone (Mysoline) 50 mg PO HS [facility] Last Admin: 10/18/17 21:02 Dose: 50 mg Results - Vital Signs Recent Vital Signs: Last Vital Signs Temp 97.9 F 10/18/17 19:50 Pulse 74 10/18/17 19:50 Resp 20 10/18/17 19:50 BP 122/74 10/18/17 19:50 Pulse Ox 98 10/18/17 19:50 - Labs Result Diagrams: 10/17/17 13:19 10/17/17 13:19
[2017-10-19] MEDS: Pantoprazole 40 mg EC Tab PO SCH (08:41)
--- NOTE | 2017-10-19 13:28 | CP.PCM.PN ---
Subjective - Date & Time of Evaluation Date of Evaluation: 10/19/17 Time of Evaluation: 13:28 - Subjective Subjective: comfortable, no new changes. Objective - Vital Signs/Intake and Output Vital Signs (last 24 hours): Temp Pulse Resp BP Pulse Ox 97.7 F 85 20 119/65 96 10/19/17 08:41 10/19/17 08:41 10/19/17 08:41 10/19/17 08:41 10/19/17 08:41 - Medications Medications: Current Medications Acetaminophen (Tylenol 325mg Tab) 650 mg PO Q6 PRN PRN Reason: Pain 1-10. Alendronate Sodium (Fosamax) 70 mg PO FRI@0630 [facility] Last Admin: 10/19/17 06:40 Dose: 70 mg Artificial Tears (Artificial Tears) 1 drop OU QID PRN PRN Reason: Dry eyes Last Admin: 10/16/17 08:21 Dose: 1 drop Atorvastatin Calcium (Lipitor) 10 mg PO [facility] Last Admin: 10/18/17 21:02 Dose: 10 mg Carbidopa/Levodopa (Sinemet 10/100) 1 tab PO 0700,1200,1500 [facility] Last Admin: 10/19/17 12:13 Dose: 1 tab Ciprofloxacin (Cipro) 250 mg PO Q12 [facility] PRN Reason: Protocol Last Admin: 10/19/17 08:41 Dose: 250 mg Docusate Sodium (Colace) 100 mg PO DAILY [facility] Last Admin: 10/19/17 08:41 Dose: 100 mg Gabapentin (Neurontin) 300 mg PO DAILY [facility] Last Admin: 10/19/17 08:41 Dose: 300 mg Pantoprazole Sodium (Protonix Ec Tab) 40 mg PO DAILY [facility] Last Admin: 10/19/17 08:41 Dose: 40 mg Primidone (Mysoline) 50 mg PO [facility] Last Admin: 10/18/17 21:02 Dose: 50 mg - Labs Labs: 10/17/17 13:19 10/17/17 13:19 - Constitutional Appears: Chronically Ill - Head Exam Head Exam: ATRAUMATIC, NORMAL INSPECTION, NORMOCEPHALIC - Eye Exam Eye Exam: Normal appearance - ENT Exam ENT Exam: Mucous Membranes Moist - Neck Exam Neck Exam: Full ROM - Respiratory Exam Respiratory Exam: Clear to Ausculation Bilateral - Cardiovascular Exam Cardiovascular Exam: REGULAR RHYTHM, +S1, +S2 - GI/Abdominal Exam GI & Abdominal Exam: Soft, Normal Bowel Sounds - Extremities Exam Extremities Exam: Normal Inspection - Neurological Exam Neurological Exam: Alert, Awake, CN II-XII Intact, Oriented x3 - Psychiatric Exam Psychiatric exam: Normal Affect - Skin Skin Exam: Normal Color Assessment and Plan (1) Fall Status: Acute (2) Peripheral neuropathy Status: Chronic (3) Subdural hemorrhage Status: Chronic (4) Parkinson disease Status: Chronic (5) Peripheral neuropathy Status: Chronic
[2017-10-19 14:09] LABS: BASO % 0.3 % (0.0-2.0); EOS % 0.3 % (0.0-4.0); HEMOGLOBIN 12.9 g/dL (12.0-16.0); LYMPH # 1.7 K/uL (1.0-4.3); LYMPH % 16.3 % (20.0-40.0); MEAN CELL VOLUME 95.1 fl (81.0-99.0); MEAN CORPUSCULAR HEMOGLOBIN 32.4 pg (27.0-31.0); MEAN CORPUSCULAR HGB CONC 34.1 g/dL (33.0-37.0); MEAN PLATELET VOLUME 7.8 fl (7.2-11.7); MONO # 0.8 K/uL (0.0-0.8); MONO % 7.9 % (0.0-10.0); NEUT # 7.7 K/uL (1.8-7.0); NEUT % 75.2 % (50.0-75.0); NRBC % 0.1 % (0.0-0.0); RBC 3.96 Mil/uL (3.80-5.20); RED CELL DISTRIBUTION WIDTH 13.1 % (11.5-14.5); WHITE BLOOD COUNT 10.2 K/uL (4.8-10.8)
[2017-10-19 14:16] LABS: BLOOD UREA NITROGEN 17 mg/dl (7-17); CALCIUM 9.8 mg/dL (8.4-10.2); GFR NON-AFRICAN AMERICAN > 60
--- NOTE | 2017-10-19 17:57 | CP.PCM.PN ---
Subjective - Date & Time of Evaluation Date of Evaluation: 10/19/17 Time of Evaluation: 17:56 - Subjective Subjective: Patient doing ok but feels rigid No pain issue I have discussed with nursing to have neurology re-evaluate her prior to discharge still able to ambulate over 100' Objective - Vital Signs/Intake and Output Vital Signs (last 24 hours): Temp Pulse Resp BP Pulse Ox 97.7 F 85 20 119/65 96 10/19/17 08:41 10/19/17 08:41 10/19/17 08:41 10/19/17 08:41 10/19/17 08:41 - Medications Medications: Current Medications Acetaminophen (Tylenol 325mg Tab) 650 mg PO Q6 PRN PRN Reason: Pain 1-10. Alendronate Sodium (Fosamax) 70 mg PO FRI@0630 [facility] Last Admin: 10/19/17 06:40 Dose: 70 mg Artificial Tears (Artificial Tears) 1 drop OU QID PRN PRN Reason: Dry eyes Last Admin: 10/16/17 08:21 Dose: 1 drop Atorvastatin Calcium (Lipitor) 10 mg PO HS [facility] Last Admin: 10/18/17 21:02 Dose: 10 mg Carbidopa/Levodopa (Sinemet 10/100) 1 tab PO 0700,1200,1500 [facility] Last Admin: 10/19/17 15:28 Dose: 1 tab Ciprofloxacin (Cipro) 250 mg PO Q12 [facility] PRN Reason: Protocol Last Admin: 10/19/17 08:41 Dose: 250 mg Docusate Sodium (Colace) 100 mg PO DAILY [facility] Last Admin: 10/19/17 08:41 Dose: 100 mg Gabapentin (Neurontin) 300 mg PO DAILY [facility] Last Admin: 10/19/17 08:41 Dose: 300 mg Pantoprazole Sodium (Protonix Ec Tab) 40 mg PO DAILY [facility] Last Admin: 10/19/17 08:41 Dose: 40 mg Primidone (Mysoline) 50 mg PO HS [facility] Last Admin: 10/18/17 21:02 Dose: 50 mg - Labs Labs: 10/19/17 13:45 10/19/17 13:45
[2017-10-20] MEDS: Pantoprazole 40 mg EC Tab PO SCH (08:12)
--- NOTE | 2017-10-20 10:53 | CP.PCM.PN ---
Subjective - Date & Time of Evaluation Date of Evaluation: 10/20/17 Time of Evaluation: 10:53 - Subjective Subjective: Not in distress Objective - Vital Signs/Intake and Output Vital Signs (last 24 hours): Temp Pulse Resp BP Pulse Ox 97.7 F 87 18 136/76 98 10/20/17 07:51 10/20/17 07:51 10/20/17 07:51 10/20/17 07:51 10/20/17 07:51 - Medications Medications: Current Medications Acetaminophen (Tylenol 325mg Tab) 650 mg PO Q6 PRN PRN Reason: Pain 1-10. Alendronate Sodium (Fosamax) 70 mg PO FRI@0630 [facility] Last Admin: 10/19/17 06:40 Dose: 70 mg Artificial Tears (Artificial Tears) 1 drop OU QID PRN PRN Reason: Dry eyes Last Admin: 10/16/17 08:21 Dose: 1 drop Atorvastatin Calcium (Lipitor) 10 mg PO [facility] Last Admin: 10/19/17 21:04 Dose: 10 mg Carbidopa/Levodopa (Sinemet 10/100) 1 tab PO 0700,1200,1500 [facility] Last Admin: 10/20/17 07:11 Dose: 1 tab Ciprofloxacin (Cipro) 250 mg PO Q12 [facility] PRN Reason: Protocol Last Admin: 10/20/17 08:11 Dose: 250 mg Docusate Sodium (Colace) 100 mg PO DAILY [facility] Last Admin: 10/20/17 08:11 Dose: 100 mg Gabapentin (Neurontin) 300 mg PO DAILY [facility] Last Admin: 10/20/17 08:12 Dose: 300 mg Pantoprazole Sodium (Protonix Ec Tab) 40 mg PO DAILY [facility] Last Admin: 10/20/17 08:12 Dose: 40 mg Primidone (Mysoline) 50 mg PO [facility] Last Admin: 10/19/17 21:05 Dose: 50 mg - Labs Labs: 10/19/17 13:45 10/19/17 13:45 - Constitutional Appears: Chronically Ill - Head Exam Head Exam: ATRAUMATIC, NORMAL INSPECTION, NORMOCEPHALIC - Eye Exam Eye Exam: Normal appearance - ENT Exam ENT Exam: Mucous Membranes Moist - Neck Exam Neck Exam: Full ROM - Respiratory Exam Respiratory Exam: Clear to Ausculation Bilateral - Cardiovascular Exam Cardiovascular Exam: REGULAR RHYTHM, +S1, +S2 - GI/Abdominal Exam GI & Abdominal Exam: Soft, Normal Bowel Sounds - Extremities Exam Extremities Exam: Normal Inspection - Neurological Exam Neurological Exam: Alert, Awake, CN II-XII Intact - Psychiatric Exam Psychiatric exam: Normal Affect - Skin Skin Exam: Normal Color Assessment and Plan (1) Fall Status: Acute (2) Peripheral neuropathy Status: Chronic (3) Subdural hemorrhage Status: Chronic (4) Parkinson disease Status: Chronic (5) Peripheral neuropathy Status: Chronic
[2017-10-21] MEDS: Pantoprazole 40 mg EC Tab PO SCH (08:48)
[2017-10-21 08:56] VITALS: BP 143/79; PULSE 101; RESP 18; TEMP 97.9; O2SAT 99
--- NOTE | 2017-10-21 12:17 | CP.PCM.DIS ---
Provider - Provider Date of Admission: 10/06/17 22:20 Attending physician: Ryan Lunsford MD Time Spent in preparation of Discharge (in minutes): 30 Diagnosis - Discharge Diagnosis (1) Fall Status: Acute (2) Peripheral neuropathy Status: Chronic (3) Subdural hemorrhage Status: Chronic (4) Parkinson disease Status: Chronic (5) Peripheral neuropathy Status: Chronic Hospital Course - Lab Results Lab Results: Micro Results 10/17/17 21:20 Urine,Clean Catch Urine Culture - Final No Growth (<1,000 CFU/ML) Most Recent Lab Values WBC 10.2 K/uL (4.8-10.8) 10/19/17 13:45 RBC 3.96 Mil/uL (3.80-5.20) 10/19/17 13:45 Hgb 12.9 g/dL (12.0-16.0) 10/19/17 13:45 Hct 37.7 % (34.0-47.0) 10/19/17 13:45 MCV 95.1 fl (81.0-99.0) 10/19/17 13:45 MCH 32.4 pg (27.0-31.0) H 10/19/17 13:45 MCHC 34.1 g/dL (33.0-37.0) 10/19/17 13:45 RDW 13.1 % (11.5-14.5) 10/19/17 13:45 Plt Count 404 K/uL (130-400) H 10/19/17 13:45 MPV 7.8 fl (7.2-11.7) 10/19/17 13:45 Neut % (Auto) 75.2 % (50.0-75.0) H 10/19/17 13:45 Lymph % (Auto) 16.3 % (20.0-40.0) L 10/19/17 13:45 [place] % (Auto) 7.9 % (0.0-10.0) 10/19/17 13:45 Eos % (Auto) 0.3 % (0.0-4.0) 10/19/17 13:45 Baso % (Auto) 0.3 % (0.0-2.0) 10/19/17 13:45 Neut # (Auto) 7.7 K/uL (1.8-7.0) H 10/19/17 13:45 Lymph # (Auto) 1.7 K/uL (1.0-4.3) 10/19/17 13:45 [place] # (Auto) 0.8 K/uL (0.0-0.8) 10/19/17 13:45 Eos # (Auto) 0.0 K/uL (0.0-0.7) 10/19/17 13:45 Baso # (Auto) 0.0 K/uL (0.0-0.2) 10/19/17 13:45 Sodium 139 mmol/l (132-148) 10/19/17 13:45 Potassium 4.9 MMOL/L (3.6-5.0) 10/19/17 13:45 Chloride 99 mmol/L (98-107) 10/19/17 13:45 Carbon Dioxide 33 mmol/L (22-30) H 10/19/17 13:45 Anion Gap 12 (10-20) 10/19/17 13:45 BUN 17 mg/dl (7-17) 10/19/17 13:45 Creatinine 0.9 mg/dl (0.7-1.2) 10/19/17 13:45 Est GFR ( Amer) > 60 10/19/17 13:45 Est GFR (Non-Af Amer) > 60 10/19/17 13:45 POC Glucose (mg/dL) 177 mg/dL (65-110) H 10/07/17 15:43 Random Glucose 65 mg/dL (65-105) 10/19/17 13:45 Hemoglobin A1c 5.6 % (4.2-6.5) 10/07/17 06:30 Calcium 9.8 mg/dL (8.4-10.2) 10/19/17 13:45 TSH 3rd Generation 1.21 mIU/ML (0.46-4.68) 10/17/17 13:19 Urine Color Yellow (YELLOW) 10/17/17 16:45 Urine Clarity Cloudy (Clear) 10/17/17 16:45 Urine pH 7.0 (5.0-8.0) 10/17/17 16:45 Ur Specific [place] 1.018 (1.003-1.030) 10/17/17 16:45 Urine Protein Negative mg/dL (NEGATIVE) 10/17/17 16:45 Urine Glucose (UA) Neg mg/dL (Normal) 10/17/17 16:45 Urine Ketones Negative mg/dL (NEGATIVE) 10/17/17 16:45 Urine Blood Negative (NEGATIVE) 10/17/17 16:45 Urine Nitrate Negative (NEGATIVE) 10/17/17 16:45 Urine Bilirubin Negative (NEGATIVE) 10/17/17 16:45 Urine Urobilinogen 0.2-1.0 mg/dL (0.2-1.0) 10/17/17 16:45 Ur Leukocyte Esterase Small Don/uL (Negative) 10/17/17 16:45 Urine RBC (Auto) 2 /hpf (0-3) 10/17/17 16:45 Urine Microscopic WBC 20 /hpf (0-5) H 10/17/17 16:45 Ur Squamous Epith Cells 1 /hpf (0-5) 10/17/17 16:45 - Hospital Course Hospital Course: This 72 years old female with hx of Arthritis, Diabetic Neuropathy and Parkinson 's Disease who was admitted to the [facility] on 10/02/17 after a fall resulting of head trauma with laceration to the Occipital region, and with a Radiological diagnosis of Subdural Hematoma. She is transferred here at the [facility] for continued treatment and rehabilitation. The patient refers no headache, dizziness, SOB nor palpitation. She does have some stiffness of the neck. She underwent to acute rehabilitation. She partially improved, she will need 24/7 assistance . The family is very supportive and they will assist the patient 24/7. Discharge Exam - Head Exam Head Exam: ATRAUMATIC, NORMAL INSPECTION, NORMOCEPHALIC - Eye Exam Eye Exam: Normal appearance - Neck Exam Neck exam: Full Rom - Respiratory Exam Respiratory Exam: Clear to PA & Lateral - Cardiovascular Exam Cardiovascular Exam: REGULAR RHYTHM - Extremities Exam Extremities exam: normal inspection - Neurological Exam Neurological exam: Alert, CN II-XII Intact, Oriented x3 Additional comments: no new deficit. - Psychiatric Exam Psychiatric exam: Normal Affect - Skin Skin Exam: Normal Color Discharge Plan - Follow Up Plan Condition: GOOD Disposition: HOME/ ROUTINE
== END 2017-10-21 17:15 | disposition home or self-care (01) | DRG 946 ==
PROVIDERS: ADMIT Internal Medicine; ATTEND Internal Medicine
PROC: F08Z1FZ Dressing Techniques Treatment using Assistive, Adaptive, Supportive or Protective Equipment (ICD-10-PCS; principal; 2017-10-06)
PROC: F07Z9FZ Gait Training/Functional Ambulation Treatment using Assistive, Adaptive, Supportive or Protective Equipment (ICD-10-PCS; 2017-10-06)
PROC: F07Z8FZ Transfer Training Treatment using Assistive, Adaptive, Supportive or Protective Equipment (ICD-10-PCS; 2017-10-06)
PROC: F07Z5FZ Bed Mobility Treatment using Assistive, Adaptive, Supportive or Protective Equipment (ICD-10-PCS; 2017-10-06)
PROC: F07L7ZZ Manual Therapy Techniques Treatment of Musculoskeletal System - Lower Back / Lower Extremity (ICD-10-PCS; 2017-10-06)
DX: S06.5X9D Traumatic subdural hemorrhage with loss of consciousness of unspecified duration, subsequent encounter (principal); W19.XXXD Unspecified fall, subsequent encounter; E11.42 Type 2 diabetes mellitus with diabetic polyneuropathy; E78.00 Pure hypercholesterolemia, unspecified; E78.5 Hyperlipidemia, unspecified; G20 Parkinson's disease; K59.00 Constipation, unspecified; M81.0 Age-related osteoporosis without current pathological fracture; Z86.73 Personal history of transient ischemic attack (TIA), and cerebral infarction without residual deficits; Z88.1 Allergy status to other antibiotic agents; Z91.041 Radiographic dye allergy status; M19.90 Unspecified osteoarthritis, unspecified site; F41.9 Anxiety disorder, unspecified; F43.21 Adjustment disorder with depressed mood

== ENCOUNTER 2018-02-12 12:34 | Emergency (ER) | payer MEDICARE, OTHER ==
[2018-02-12 12:51] VITALS: BMI 28.6
--- NOTE | 2018-02-12 13:38 | ED PDOC ---
Lower Extremity Pain/Injury Time Seen by Provider: 02/12/18 13:34 Chief Complaint (Nursing): Lower Extremity Problem/Injury History Per: Patient Onset/Duration Of Symptoms: Other (3 weeks) Current Symptoms Are (Timing): Still Present Severity: Moderate Additional Complaint(s): Pain right knee and right thigh x 3 weeks. Fell 3 weeks ago with injury to right lower ext. Denies chest pain or SOB. Past Medical History Vital Signs: Last Vital Signs Temp 98.5 F 02/12/18 12:52 Pulse 81 02/12/18 12:52 Resp 19 02/12/18 12:52 BP 146/79 02/12/18 12:52 Pulse Ox 99 02/12/18 12:52 - Medical History PMH: Anxiety, Arthritis, Diabetes (with neuropathy), Diverticulitis, Hypercholesterolemia, Osteoporosis, Parkinson's Disease, TIA Denies: CAD, Gastritis, Gall Bladder Disease, GERD, HIV, Pancreatitis, Chronic Kidney Disease - Surgical History Surgical History: Appendectomy, Cholecystectomy - Family History Family History: States: Unknown Family Hx - Immunization History Hx Tetanus Toxoid Vaccination: No Hx Influenza Vaccination: Yes Hx Pneumococcal Vaccination: Yes - Home Medications Home Medications: Ambulatory Orders Medication Instructions Recorded Acetaminophen [Tylenol 325mg tab] 650 mg PO Q6 PRN tab 10/05/17 Carbidopa/Levodopa [Sinemet 1 tab PO BID tab 10/05/17] Docusate [Colace] 100 mg PO DAILY cap 10/05/17 Gabapentin [Neurontin] 300 mg PO DAILY cap 10/05/17 Pantoprazole [Protonix EC Tab] 40 mg PO DAILY ect 10/05/17 Primidone [Mysoline] 50 mg PO HS tab 10/05/17 Rosuvastatin Calcium [Crestor] 5 mg PO HS tab 10/05/17 Alendronate Sodium [Binosto] 70 mg PO QD7 01/04/18 Aspirin [Aspirin Chewable] 81 mg PO DAILY 01/04/18 Naproxen [Naprosyn] 500 mg PO Q12H #20 tab 02/12/18 - Allergies Allergies/Adverse Reactions: Allergies Allergy/AdvReac Type Severity Reaction Status Date / Time clarithromycin Allergy NAUSEA Verified 01/04/18 19:39 iodine Allergy SWELLING Verified 01/04/18 19:39 Review of Systems ROS Statement: Except As Marked, All Systems Reviewed And Found Negative Cardiovascular: Negative for: Chest Pain Respiratory: Negative for: Shortness of Breath Musculoskeletal: Positive for: Leg Pain Physical Exam - Reviewed Nursing Documentation Reviewed: Yes Vital Signs Reviewed: Yes - Physical Exam Appears: Positive for: Non-toxic, No Acute Distress Head Exam: Positive for: ATRAUMATIC, NORMAL INSPECTION, NORMOCEPHALIC Skin: Positive for: Normal Color, Warm, DRY Eye Exam: Positive for: EOMI, Normal appearance, PERRL ENT: Positive for: Normal ENT Inspection Neck: Positive for: Normal, Painless ROM Cardiovascular/Chest: Positive for: Regular Rate, Rhythm Respiratory: Positive for: CNT, Normal Breath Sounds Gastrointestinal/Abdominal: Positive for: Normal Exam, Soft Back: Positive for: Normal Inspection Extremity: Positive for: Other (Right knee, no swelling or deformity. Tenderness right medial thigh. No erythema or swelling. No calf tenderness or swelling) Neurologic/Psych: Positive for: Alert, Oriented - ECG O2 Sat by Pulse Oximetry: 99 Medical Decision Making Medical Decision Making: Will obtain xray of knee as well as uS to r/o DVT Discussed with Dr. Lunsford can be followed outpt Disposition - Clinical Impression Clinical Impression: Contusion - Patient ED Disposition Is Patient to be Admitted: No Counseled Patient/Family Regarding: Studies Performed, Diagnosis, Need For Followup, Rx Given - Disposition Referrals: Ryan Lunsford MD [Family Provider] - Disposition: Routine/Home Disposition Time: 15:20 Condition: FAIR Prescriptions: Naproxen [Naprosyn] 500 mg PO Q12H #20 tab Instructions: Contusion (DC) Forms: [employer] [place] (Frisian)
[2018-02-12 15:31] VITALS: BP 139/72; PULSE 78; RESP 16; TEMP 98; O2SAT 100
--- NOTE | 2018-02-12 15:35 | US ---
Date of service: 02/12/2018 PROCEDURE: Right lower extremity venous duplex Doppler. HISTORY: Thigh pain COMPARISON: Bilateral lower extremity venous ultrasound 11/09/2016.. TECHNIQUE: Ultrasonography of the right lower extremity main deep veins is been performed including grayscale and duplex Doppler interrogation with graded compression and augmentation. FINDINGS: Good compressibility, augmentation as well as normal phasic blood flow is identified at the right common and superficial femoral as well as popliteal veins with the posterior tibial vein patent as well. No sonographic evidence to suggest deep venous thrombosis right lower extremity. Saphenofemoral junction appears unremarkable. OTHER FINDINGS: None. IMPRESSION: No sonographic evidence to suggest deep venous thrombosis right lower extremity.
--- NOTE | 2018-02-12 16:00 | RAD ---
Date of service: 02/12/2018 PROCEDURE: Right Knee Radiographs. HISTORY: trauma COMPARISON: None. FINDINGS: BONES: No acute fracture or destructive bony lesion identified. JOINTS: No subluxation or dislocation. Degenerative soft tissue sclerosis appreciated in the joint spaces of the medial and lateral femorotibial compartments likely within the menisci and there is joint space narrowing identified also compatible with degenerative joint disease. JOINT EFFUSION: None. OTHER FINDINGS: Vascular calcification identified posterior tooth distal femur knee joint and tibia proximally. IMPRESSION: [id number] degenerative joint disease. No fracture or dislocation on acute basis. Vascular calcifications are identified within posterior knee thigh and proximal leg soft tissues.
== END 2018-02-12 15:36 | disposition home or self-care (01) ==
LOC: H.ER 12:34
DX: S89.91XA Unspecified injury of right lower leg, initial encounter (principal); S80.01XA Contusion of right knee, initial encounter; W19.XXXA Unspecified fall, initial encounter; Y92.89 Other specified places as the place of occurrence of the external cause